=== PATIENT | female | born 1990 | race Caucasian/White ===

== ENCOUNTER 2018-06-23 17:51 | Emergency (ER) | payer OTHER ==
[2018-06-23 18:43] LABS: BASOPHIL % 0.1 % (0.0-0.4); Basophil (Absolute #) 0.02 (0-0.4); Eosinophil % 0.4 % (0.00-5.0); Eosinophil (Absolute #) 0.05 (0-0.5); Granulocytes % 80.1 % (36.0-66.0); Hemoglobin 13.1 gm/dl (12.0-16.0); Lymphocyte (Absolute #) 1.25 (1.0-4.6); Lymphocytes % 9.4 % (24.0-44.0); Mean Cell Volume 89.7 fl (78-100); Mean Corpuscular Hemoglobin 29.4 pg (26-32); Mean Corpuscular Hgb Concent. 32.8 g/dl (32-36); Mean Platelet Volume 10.9 fl (6-9.5); Monocyte (Absolute #) 1.33 (0.0-1.3); Platelet Count 326 K/mm3 (150-450); Red Blood Count 4.46 M/mm3 (4.1-5.4); Red Cell Distribution Width 12.7 % (11.5-14.0); White Blood Count 13.4 K/mm3 (4.0-10.5)
[2018-06-23 18:52] LABS: ADD MANUAL DIFF? NO (NO)
[2018-06-23] MEDS ORDERED: Hydromorphone 1 mg/ml Ampule (19:00)
[2018-06-23] MEDS ORDERED: BENADRYL 50 MG/ML ×2 (19:00→19:28)
[2018-06-23] MEDS ORDERED: Phenergan 25 MG INJ (19:00)
[2018-06-23] MEDS: Hydromorphone 1 mg/ml Ampule IV (19:05)
[2018-06-23] MEDS: Phenergan 25 MG INJ IV (19:05)
[2018-06-23] MEDS: BENADRYL 50 MG/ML IV ×2 (19:06→19:30)
[2018-06-23 19:11] LABS: ALBUMIN 4.4 g/dL (3.5-5.0); ALKALINE PHOSPHATASE 115 U/L (38-126); ANION GAP 15.7 MEQ/L (5-15); BLOOD UREA NITROGEN 8 mg/dL (7-17); CHLORIDE 103 mmol/L (98-107); Calcium 9.6 mg/dL (8.4-10.2); Carbon Dioxide 27 mmol/L (22-30); Creatinine 1 0.62 mg/dL (0.52-1.04); EST GLOMERULAR FILTRATION RATE > 60.0 ML/MIN; Glucose 112 mg/dL (74-106); Potassium 4.3 mmol/L (3.5-5.1); SGOT/AST 29 U/L (14-36); SGPT/ALT 31 U/L (0-35); SODIUM 141 mmol/L (137-145); Total Protein 7.7 g/dL (6.3-8.2)
[2018-06-23 19:11] LABS: TROPONIN < 0.012 ng/mL (0.000-0.034)
[2018-06-23 20:17] LABS: Appearance CLOUDY (CLEAR); Bilirubin SMALL (NEGATIVE); Blood 250 Ery/ul (0-5); COMPLETE URINE MICROSCOPIC? YES; Collection Type VOID; Glucose NEGATIVE (NEGATIVE); Ketones MODERATE (NEGATIVE); Leukocyte Esterase 2+ (NEGATIVE); Nitrite NEGATIVE (NEGATIVE); Protein,Urine Dip TRACE (Negative); Urobilinogen 8 mg/dL (0-1)
[2018-06-23 20:18] LABS: ADD URINE CULTURE? YES (NO); Bacteria MODERATE /HPF (NEGATIVE); Epithelial Cells MANY /HPF (FEW); Mucus MODERATE /HPF (NEGATIVE); WBC 25-50 /HPF (0-5)
[2018-06-23] MEDS ORDERED: ROCEPHIN 1 Gm-D5w 50 ml Bag** 1 G/50 ML IVPB IV (20:37)
[2018-06-23] MEDS ORDERED: Sodium Chloride 0.9% 1000 ML 1,000 ML (20:37)
[2018-06-23] MEDS ORDERED: TYLENOL 325 MG (20:38)
[2018-06-23] MEDS: ROCEPHIN 1 Gm-D5w 50 ml Bag** 1 G/50 ML IVPB IV (20:47)
[2018-06-23] MEDS: Sodium Chloride 0.9% 1000 ML 1,000 ML IV (20:48)
[2018-06-23] MEDS: TYLENOL 325 MG PO (20:50)
== END 2018-06-23 21:52 | disposition home or self-care (01) ==
LOC: ED 17:51
CPT/HCPCS: 36000; 36415; 80053; 81000; 84484; 85025; 87086; 93005; 96374; J0696; J1170; J1200; J2550

== ENCOUNTER 2018-07-04 21:26 | Emergency (ER) | payer OTHER ==
[2018-07-04] MEDS ORDERED: BENADRYL 50 MG/ML IM ONE (22:01)
[2018-07-04] MEDS ORDERED: Phenergan 25 MG INJ IM ONE (22:01)
[2018-07-04] MEDS ORDERED: Hydromorphone 1 mg/ml Ampule IM ONE (22:01)
[2018-07-04] MEDS ORDERED: BENADRYL 50 MG/ML ONE (22:07)
[2018-07-04] MEDS ORDERED: Hydromorphone 1 mg/ml Ampule ONE (22:07)
[2018-07-04] MEDS ORDERED: Phenergan 25 MG INJ ONE ×2 (22:07→22:14)
--- NOTE | 2018-07-04 22:08 | ERPHSYRPT ---
- History of Present Illness Time Seen by Provider: 07/04/18 21:55 Source: patient, family Patient Subjective Stated Complaint: pt is alert and oriented. pt is ambulatory with a steady gait. pt comes in with c/o migraine the past 4 days. pt states that she has "hemapalegic" migraines and that "he face and left side go numb" pt has left sided weakness upon assesment but was able to walk into room and get into bed with no trouble. pt PERRLA. Triage Nursing Assessment: see above Physician History: 27 y/o white female with h/o hemiplegic migraines presents with 4 day h/o migraine headache. it is unresponsive to her home meds. pt is to see a new neurologist. the combination of meds that work for her are benadryl, dilaudid and phenergan Timing/Duration: day(s) (4) Quality: other (usual throbbing. not the worst headache she has ever had) Head Pain Location: frontal, temporal Severity of Pain-Max: moderate Severity of Pain-Current: moderate Recent Head Trauma: no recent headache/trauma Modifying Factors: Improves With: exposure to light (worsen), movement Associated Symptoms: nausea/vomiting, visual disturbance, other (left side numbness), No confusion, No fatigue Allergies/Adverse Reactions: ketorolac [From Toradol] Allergy (Verified 06/23/18 18:18) morphine Allergy (Verified 06/23/18 18:18) Home Medications: Baclofen 10 mg [Lioresal 10 mg] 10 mg PO BID PRN 07/04/18 [History] Hydrocodone Bit/Acetaminophen [[place] 7.5-325 Tablet] 1 tab PO Q6H PRN PRN [History] Ibuprofen 200 mg [Motrin 200 mg] 800 mg PO Q4-6HPRN PRN 07/04/18 [History] Memantine HCl [Namenda] 5 mg PO DAILY 07/04/18 [History] Hx Tetanus, Diphtheria Vaccination/Date Given: Yes Hx Influenza Vaccination/Date Given: No Hx Pneumococcal Vaccination/Date Given: No Immunizations Up to Date: Yes - Review of Systems Constitutional: No Symptoms, No Fever Eyes: Photophobia Ears, Nose, & Throat: No Symptoms, No Ear Pain Respiratory: No Symptoms Cardiac: No Symptoms, No Chest Pain, No Palpitations, No Syncope Abdominal/Gastrointestinal: No Symptoms, No Abdominal Pain, No Nausea, No Vomiting, No Diarrhea Genitourinary Symptoms: No Symptoms, No Dysuria, No Frequency, No Hematuria Musculoskeletal: No Symptoms, No Neck Pain Skin: No Symptoms Neurological: Headache, Parasthesia (left face normal with her migraines) Psychological: No Symptoms Endocrine: No Symptoms Hematologic/Lymphatic: No Symptoms Immunological/Allergic: No Symptoms All Other Systems: Reviewed and Negative - Past Medical History Pertinent Past Medical History: Yes Neurological History: Migraines ENT History: No Pertinent History Cardiac History: No Pertinent History Respiratory History: No Pertinent History Endocrine Medical History: No Pertinent History Musculoskeletal History: No Pertinent History GI Medical History: Irritable Bowel History: No Pertinent History Psycho-Social History: No Pertinent History Female Reproductive Disorders: No Pertinent History Other Medical History: seizures with migraines - Past Surgical History Past Surgical History: Yes Neuro Surgical History: No Pertinent History Cardiac: No Pertinent History Respiratory: No Pertinent History Gastrointestinal: Cholecystectomy Genitourinary: No Pertinent History Musculoskeletal: No Pertinent History Female Surgical History: Lumpectomy Other Surgical History: L ARM FRACTURE, R lumpectomy. - Social History Smoking Status: Never smoker Drug Use: none Patient Lives Alone: No - Female History Hx Last Menstrual Period: 06/21/18 Hx Now: No - Nursing Vital Signs Nursing Vital Signs: Initial Vital Signs Temperature 98.7 F 07/04/18 21:27 Pulse Rate 80 07/04/18 21:27 Respiratory Rate 16 07/04/18 21:27 Blood Pressure 127/75 07/04/18 21:27 O2 Sat by Pulse Oximetry 100 07/04/18 21:27 Pain Scale Pain Intensity 8 - Physical Exam General Appearance: mild distress, alert, anxiety Eye Exam: PERRL/EOMI, eyes nml inspection Ears, Nose, Throat Exam: normal ENT inspection Neck Exam: normal inspection, non-tender, supple, full range of motion Respiratory Exam: normal breath sounds, lungs clear, airway intact, No chest tenderness, No respiratory distress, No accessory muscle use, No rhonchi, No wheezing, No stridor Cardiovascular Exam: regular rate/rhythm, normal heart sounds, normal peripheral pulses Gastrointestinal/Abdominal Exam: soft, normal bowel sounds, No tenderness, No guarding, No rebound Back Exam: normal inspection, normal range of motion, No CVA tenderness, No vertebral tenderness Extremity Exam: normal inspection, normal range of motion, pelvis stable 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, 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, 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 Exam: normal hearing, 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, PERRL Coordination/Gait Exam: normal finger to nose, normal gait Motor/Sensory Exam: no motor deficit, no sensory deficit Skin Exam: No normal color, No warm, No dry Lymphatic Exam: No adenopathy SpO2 Interpretation: normal SpO2: 100 Oxygen Delivery: Room Air - Course Nursing assessment & vital signs reviewed: Yes - Progress Progress: improved, re-examined Air Movement: good Blood Culture(s) Obtained: No Antibiotics given: No Counseled pt/family regarding: diagnosis, need for follow-up - Departure Time of Disposition: 22:24 Departure Disposition: Home Clinical Impression: Migraine headache Condition: Stable Critical Care Time: No Referrals: SHEFALI CERRATO [Primary Care Provider] - Additional Instructions: follow up with your primary doctor or neurologist for further management.
[2018-07-04 22:21] VITALS: PULSE 85
[2018-07-04 22:35] VITALS: BP 106/76; O2SAT 97
== END 2018-07-04 22:35 | disposition home or self-care (01) ==
LOC: ED 21:26
DX: G43.909 Migraine, unspecified, not intractable, without status migrainosus (principal); Z79.899 Other long term (current) drug therapy
CPT/HCPCS: 96372; 99284; J1170; J1200; J2550

== ENCOUNTER 2018-07-05 14:29 | Emergency (ER) | payer OTHER ==
[2018-07-05 14:41] VITALS: O2SAT 98
--- NOTE | 2018-07-05 14:57 | ERPHSYRPT ---
- History of Present Illness Time Seen by Provider: 07/05/18 14:53 Source: patient Exam Limitations: no limitations Patient Subjective Stated Complaint: pt here for migraine, she states she was here for same thing last night and was given shots Triage Nursing Assessment: pt alert, arrived per wc with sunglasses on, resp easy, skin w/d/p. nausea today Physician History: 27-year-old white female who states she has a history of hemiplegic migraines arrives with a headache Patient seen here last night for same thing. Patient apparently gets a "cocktail" consisting of Benadryl, Dilaudid and Phenergan. Patient has not had any fevers Past medical history includes migraines, irritable bowel, seizures or migraine Past surgical history includes tonsillectomy, cholecystectomy, lumpectomy, left arm fracture, right lumpectomy Timing/Duration: today Severity: moderate Associated Symptoms: nausea, No vomiting, No abdominal pain, No shortness of breath, No heartburn, No diaphoresis, No cough, No chills, No chest pain, No fever, No headaches, No loss of appetite, No malaise, No rash, No syncope, No seizure Allergies/Adverse Reactions: ketorolac [From Toradol] Allergy (Verified 07/13/18 11:10) morphine Allergy (Verified 07/13/18 11:10) Home Medications: Baclofen 10 mg [Lioresal 10 mg] 10 mg PO BID PRN 07/04/18 [History] Hydrocodone Bit/Acetaminophen [[place] 7.5-325 Tablet] 1 tab PO Q6H PRN PRN [History] Ibuprofen 200 mg [Motrin 200 mg] 800 mg PO Q4-6HPRN PRN 07/04/18 [History] Dihydroergotamine Mesylate [D.h.e.45] 1 mg IJ DAILY 07/13/18 [History] Hx Tetanus, Diphtheria Vaccination/Date Given: No Hx Influenza Vaccination/Date Given: No Hx Pneumococcal Vaccination/Date Given: No Immunizations Up to Date: Yes - Review of Systems Constitutional: No No Symptoms (she was) Eyes: Photophobia, No Discharge, No Eye Pain, No Eye Redness, No Itchy, No Tearing, No Vision Changes, No Double Vision, No Foreign Body Sensation Ears, Nose, & Throat: No Symptoms Respiratory: No Cough, No Dyspnea Cardiac: No Chest Pain, No Edema, No Syncope Abdominal/Gastrointestinal: No Abdominal Pain, No Nausea, No Vomiting, No Diarrhea, No Constipation, No Hematemesis, No Hematochezia, No Melena, No Dysphagia, No Appetite Changes Genitourinary Symptoms: No Dysuria Musculoskeletal: No Back Pain, No Neck Pain Skin: No Rash Neurological: Headache, Other (patient states hemiplegic migraine), No Dizziness , No Focal Weakness, No Sensory Changes Psychological: No Symptoms Endocrine: No Symptoms All Other Systems: Reviewed and Negative - Past Medical History Pertinent Past Medical History: Yes Neurological History: Migraines ENT History: No Pertinent History Cardiac History: No Pertinent History Respiratory History: No Pertinent History Endocrine Medical History: No Pertinent History Musculoskeletal History: No Pertinent History GI Medical History: Irritable Bowel History: No Pertinent History Psycho-Social History: No Pertinent History Female Reproductive Disorders: No Pertinent History Other Medical History: seizures with migraines - Past Surgical History Past Surgical History: Yes Neuro Surgical History: No Pertinent History Cardiac: No Pertinent History Respiratory: No Pertinent History Gastrointestinal: Cholecystectomy Genitourinary: No Pertinent History Musculoskeletal: No Pertinent History Female Surgical History: Lumpectomy Other Surgical History: L ARM FRACTURE, R lumpectomy. - Social History Smoking Status: Never smoker Exposure to second hand smoke: No Drug Use: none Patient Lives Alone: No - Female History Hx Last Menstrual Period: 2 weeks ago Hx Now: No - Nursing Vital Signs Nursing Vital Signs: Initial Vital Signs Temperature 97.0 F 07/05/18 14:37 Pulse Rate 100 H 07/05/18 14:37 Respiratory Rate 18 07/05/18 14:37 Blood Pressure 112/83 07/05/18 14:37 O2 Sat by Pulse Oximetry 98 07/05/18 14:37 Pain Scale Pain Intensity 9 - Physical Exam General Appearance: no apparent distress, alert Eye Exam: PERRL/EOMI, eyes nml inspection Ears, Nose, Throat Exam: normal ENT inspection, TMs normal, pharynx normal, moist mucous membranes Neck Exam: normal inspection, non-tender, supple, full range of motion Respiratory Exam: normal breath sounds, lungs clear, No respiratory distress Cardiovascular Exam: regular rate/rhythm, normal heart sounds, normal peripheral pulses Gastrointestinal/Abdomen Exam: soft, normal bowel sounds, No tenderness, No mass Back Exam: normal inspection, normal range of motion, No CVA tenderness, No vertebral tenderness Extremity Exam: normal inspection, normal range of motion, pelvis stable Neurologic Exam: alert, 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, cooperative, 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 nml as tested, normal mood/affect, nml cerebellar function, nml station & gait, sensation nml, other (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 her migraines), No motor deficits Skin Exam: normal color, warm, dry, No rash SpO2 Interpretation: normal (98%) SpO2: 98 Ordered Tests: Medication Summary Discontinued Medications Generic Name Dose Route Start Last Admin Trade Name Freq PRN Reason Stop Dose Admin Diphenhydramine HCl 25 mg 07/05/18 15:04 07/05/18 15:19 Benadryl 50 Mg/Ml IV 07/05/18 15:05 25 mg STAT ONE Administration Diphenhydramine HCl Confirm 07/05/18 15:15 Benadryl 50 Mg/Ml Administered 07/05/18 15:16 Dose 50 mg .ROUTE .STK-MED ONE Hydromorphone HCl 1 mg 07/05/18 15:04 07/05/18 15:17 Hydromorphone 1 Mg/Ml Ampule IV 07/05/18 15:05 1 mg STAT ONE Administration Hydromorphone HCl Confirm 07/05/18 15:15 Hydromorphone 1 Mg/Ml Ampule Administered 07/05/18 15:16 Dose 1 mg .ROUTE .STK-MED ONE Hydromorphone HCl 1 mg 07/05/18 16:05 Hydromorphone 1 Mg/Ml Ampule IV 07/05/18 16:06 STAT ONE Hydromorphone HCl Confirm 07/05/18 16:59 Hydromorphone 1 Mg/Ml Ampule Administered 07/05/18 17:00 Dose 1 mg .ROUTE .STK-MED ONE Sodium Chloride 1,000 mls @ 999 mls/hr 07/05/18 15:04 07/05/18 15:17 Sodium Chloride 0.9% 1000 Ml IV 07/05/18 16:04 999 mls/hr .Q1H1M STA Administration Sodium Chloride Confirm 07/05/18 15:15 Sodium Chloride 0.9% 1000 Ml Administered 07/05/18 15:16 Dose 1,000 mls @ ud .ROUTE .STK-MED ONE Promethazine HCl 12.5 mg 07/05/18 15:04 07/05/18 15:17 Phenergan 25 Mg Inj IV 07/05/18 15:05 12.5 mg STAT ONE Administration Promethazine HCl Confirm 07/05/18 15:14 Phenergan 25 Mg Inj Administered 07/05/18 15:15 Dose 25 mg .ROUTE .STK-MED ONE - Departure Time of Disposition: 17:30 Departure Disposition: Home Clinical Impression: Migraine Qualifiers: Migraine type: unspecified Status migrainosus presence: without status migrainosus Intractability: not intractable Qualified Code(s): G43.909 - Migraine, unspecified, not intractable, without status migrainosus Condition: Fair Critical Care Time: No Referrals: SHEFALI CERRATO [Primary Care Provider] -
[2018-07-05] MEDS ORDERED: BENADRYL 50 MG/ML IV ONE (15:04)
[2018-07-05] MEDS ORDERED: Sodium Chloride 0.9% 1000 ML 1,000 ML IV STA (15:04)
[2018-07-05] MEDS ORDERED: Hydromorphone 1 mg/ml Ampule IV ONE ×2 (15:04→16:05)
[2018-07-05] MEDS ORDERED: Phenergan 25 MG INJ IV ONE (15:04)
[2018-07-05] MEDS ORDERED: Phenergan 25 MG INJ ONE (15:14)
[2018-07-05] MEDS ORDERED: Hydromorphone 1 mg/ml Ampule ONE ×2 (15:15→16:59)
[2018-07-05] MEDS ORDERED: Sodium Chloride 0.9% 1000 ML 1,000 ML ONE (15:15)
[2018-07-05] MEDS ORDERED: BENADRYL 50 MG/ML ONE (15:15)
[2018-07-05 15:35] VITALS: BP 107/64; PULSE 89
== END 2018-07-05 17:30 | disposition home or self-care (01) ==
LOC: ED 14:29
DX: G43.909 Migraine, unspecified, not intractable, without status migrainosus (principal); Z79.899 Other long term (current) drug therapy
CPT/HCPCS: 96360; 96374; 96375; 99284; J1170; J1200; J2550

== ENCOUNTER 2018-07-13 11:03 | Emergency (ER) | payer OTHER ==
--- NOTE | 2018-07-13 11:46 | ERPHSYRPT ---
- History of Present Illness Time Seen by Provider: 07/13/18 11:27 Source: patient Exam Limitations: no limitations Patient Subjective Stated Complaint: "migraine" for three days Triage Nursing Assessment: ambulated to room per self with sunglasses on. resp easy. skin w/d, color normal. Physician History: The patient is a 27-year-old female with a friend complaining of a typical migraine headache that began on Saturday and has continued Saturday and Saturday. She saw a doctor on and was given D.H.E. 45 for self injections at home for the migraines. Her mother gave her DHE on Saturday and Saturday by IM without relief. She also has [place] 5/325 for her headaches as well as baclofen. She did not take the [place] today. In the past she has taken DHE by IV with good results. She has taken Toradol with Phenergan with good results but now she states the Toradol gives her a rash at the site of injection. She has tried Haldol by IV in the past but does not want to take it because of the way it makes her feel. She has tried steroids with Benadryl by IV with some good results. She states that eventually after trying various medicines by IV they don't work well. She has been seen in this ER on 06/23/18, 07/04/18, and 07/05, for migraine headache treatment. Each time she was given Dilaudid, Benadryl, and Phenergan. She has seen a neurologist in the past for her headaches and has been put on prophylactic medicines for preventative treatment. She is to see a neurologist in [place] in the near future but does not have the date sat at this time. She states that some known triggers for her are caffeine, bananas, and sauces. She does drink occasionally. She eats cheeses and chocolates. She has had migraines since she was 12 years old. On Saturday when the migraine began, she had her typical migrainous aura which consisted of blurry vision in the left eye and numbness on the left side of her body a few minutes before the headache began. In the past she has tried Imitrex during the migrainous aura without relief. Her past medical history is significant for migraine headaches with aura, left arm fracture, benign right breast lump, and cholecystectomy. Today light bothers her as does her stomach. She is nauseated but has not vomited. Timing/Duration: day(s) (3), constant, sudden Quality: aching Head Pain Location: temporal (left) Severity of Pain-Max: moderate Severity of Pain-Current: moderate Recent Head Trauma: frequent headaches, chronic headaches Modifying Factors: Improves With: exposure to light, medication (has not taken any meds for migraine treatment today at home) Associated Symptoms: nausea/vomiting, sensitive to light Previous symptoms: same symptoms as today, recently seen, recently treated Allergies/Adverse Reactions: ketorolac [From Toradol] Allergy (Verified 07/13/18 11:10) morphine Allergy (Verified 07/13/18 11:10) Home Medications: Baclofen 10 mg [Lioresal 10 mg] 10 mg PO BID PRN 07/04/18 [History] Hydrocodone Bit/Acetaminophen [[place] 7.5-325 Tablet] 1 tab PO Q6H PRN PRN [History] Ibuprofen 200 mg [Motrin 200 mg] 800 mg PO Q4-6HPRN PRN 07/04/18 [History] Dihydroergotamine Mesylate [D.h.e.45] 1 mg IJ DAILY 07/13/18 [History] Hx Tetanus, Diphtheria Vaccination/Date Given: No Hx Influenza Vaccination/Date Given: No Hx Pneumococcal Vaccination/Date Given: No - Review of Systems Constitutional: No Fever, No Chills Eyes: Photophobia Ears, Nose, & Throat: No Symptoms Respiratory: No Cough, No Dyspnea Cardiac: No Chest Pain, No Edema, No Syncope Abdominal/Gastrointestinal: No Abdominal Pain, No Nausea, No Vomiting, No Diarrhea Genitourinary Symptoms: No Dysuria Musculoskeletal: No Back Pain, No Neck Pain Skin: No Rash Neurological: Headache, No Dizziness, No Focal Weakness, No Sensory Changes Psychological: No Symptoms Endocrine: No Symptoms Hematologic/Lymphatic: No Symptoms Immunological/Allergic: No Symptoms All Other Systems: Reviewed and Negative - Past Medical History Pertinent Past Medical History: Yes Neurological History: Migraines ENT History: No Pertinent History Cardiac History: No Pertinent History Respiratory History: No Pertinent History Endocrine Medical History: No Pertinent History Musculoskeletal History: No Pertinent History GI Medical History: Irritable Bowel History: No Pertinent History Psycho-Social History: No Pertinent History Female Reproductive Disorders: No Pertinent History Other Medical History: seizures with migraines - Past Surgical History Past Surgical History: Yes Neuro Surgical History: No Pertinent History Cardiac: No Pertinent History Respiratory: No Pertinent History Gastrointestinal: Cholecystectomy Genitourinary: No Pertinent History Musculoskeletal: No Pertinent History Female Surgical History: Lumpectomy Other Surgical History: L ARM FRACTURE, R lumpectomy. - Social History Smoking Status: Never smoker Exposure to second hand smoke: No Drug Use: none Patient Lives Alone: No - Female History Hx Last Menstrual Period: three weeks ago Hx Now: No - Nursing Vital Signs Nursing Vital Signs: Initial Vital Signs Temperature 98.9 F 07/13/18 11:07 Pulse Rate 85 07/13/18 11:07 Respiratory Rate 16 07/13/18 11:07 Blood Pressure 123/86 07/13/18 11:07 O2 Sat by Pulse Oximetry 99 07/13/18 11:07 Pain Scale Pain Intensity 8 - Physical Exam General Appearance: no apparent distress Eye Exam: PERRL/EOMI, No photophobia Ears, Nose, Throat Exam: normal ENT inspection, moist mucous membranes Neck Exam: normal inspection, supple, full range of motion, No meningismus Respiratory Exam: normal breath sounds, lungs clear Cardiovascular Exam: regular rate/rhythm, normal heart sounds Gastrointestinal/Abdominal Exam: soft, No tenderness, No distention Back Exam: normal inspection, normal range of motion Extremity Exam: normal inspection 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, 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, 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 Exam: normal hearing, 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, PERRL, tongue midline, No abnormal pupil position, No ab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, No facial asymmetry, No facial droop, No facial paresthesias, No facial weakness Coordination/Gait Exam: normal cerebellar function Motor/Sensory Exam: no motor deficit, no sensory deficit Skin Exam: normal color, warm, dry, No rash SpO2 Interpretation: normal SpO2: 99 Oxygen Delivery: Room Air Ordered Tests: Medication Summary Generic Name Dose Route Start Last Admin Trade Name Freq PRN Reason Stop Dose Admin Sodium Chloride 1,000 mls @ 999 mls/hr 07/13/18 12:25 07/13/18 12:33 Sodium Chloride 0.9% 1000 Ml IV 07/13/18 13:25 999 mls/hr .Q1H1M STA Administration Discontinued Medications Generic Name Dose Route Start Last Admin Trade Name Freq PRN Reason Stop Dose Admin Diphenhydramine HCl 50 mg 07/13/18 12:25 07/13/18 12:33 Benadryl 50 Mg/Ml IV 07/13/18 12:26 50 mg STAT ONE Administration Diphenhydramine HCl Confirm 07/13/18 12:30 Benadryl 50 Mg/Ml Administered 07/13/18 12:31 Dose 50 mg .ROUTE .STK-MED ONE Sodium Chloride Confirm 07/13/18 12:30 Sodium Chloride 0.9% 1000 Ml Administered 07/13/18 12:31 Dose 1,000 mls @ ud .ROUTE .STK-MED ONE Prochlorperazine Edisylate 10 mg 07/13/18 12:25 07/13/18 12:44 Compazine 10 Mg/2 Ml IV 07/13/18 12:26 10 mg STAT ONE Administration Prochlorperazine Edisylate Confirm 07/13/18 12:30 Compazine 10 Mg/2 Ml Administered 07/13/18 12:31 Dose 10 mg .ROUTE .STK-MED ONE - Progress Progress Note: 07/13/18 11:52 I discussed with the patient the treatment options before beginning any other. I told her I rarely give narcotics for migraine headaches. She agreed to begin treatment with IV fluids (she states that that helps), IV Phenergan, IV Benadryl , and IV DHE 45. 07/13/18 12:22 After review of up-to-date there is a recent acute treatment of migraine in adults by Cliff Ceron, Cliff Pedroza, and Cliff Ramos, that was updated 03/03/18 with literature review current to 06/07. This review article does not recommend the use of narcotics for acute migraine treatment. Known poor outcome from narcotic use is discussed including rebound headaches. After discussion with the patient, the patient agrees to Compazine is 10 mg, Benadryl 50 mg, and fluids by IV consistent with the literature review. 07/13/18 13:22 The patient was given Compazine 10 mg, Benadryl 50 mg, and about 800 mL of normal saline by IV. She states that she is ready to go home. I asked her how she was feeling and she states that she was "not any better but wants to go home ". She states that she is feeling jittery. I really minded her to keep a complete food diary to look for triggers of her migraine headache. I also recommended that she try Imitrex with naproxen next time she has a beginning of a headache. The patient agreed. Counseled pt/family regarding: diagnosis, need for follow-up - Departure Time of Disposition: 13:24 Departure Disposition: Home Clinical Impression: Migraine headache Condition: Stable Critical Care Time: No Referrals: Provider,Unknown [Primary Care Provider] - Additional Instructions: You have a recalcitrant migraine headache. You were given Compazine 10 mg, Benadryl 50 mg, and fluids by IV in the ER. We discussed the need for you to avoid narcotics for treatment of your migraine headaches. I suggest that you use Imitrex with 500 mg of naproxen at the beginning of future headaches. Follow-up with your future appointment with a neurologist. Also follow-up with your primary medical doctor sometime next week. Keep a food diary to identify food triggers of the migraine headaches.
[2018-07-13] MEDS ORDERED: Compazine 10 MG/2 ML IV ONE (12:25)
[2018-07-13] MEDS ORDERED: Sodium Chloride 0.9% 1000 ML 1,000 ML IV STA (12:25)
[2018-07-13] MEDS ORDERED: BENADRYL 50 MG/ML IV ONE (12:25)
[2018-07-13] MEDS ORDERED: BENADRYL 50 MG/ML ONE (12:30)
[2018-07-13] MEDS ORDERED: Compazine 10 MG/2 ML ONE (12:30)
[2018-07-13] MEDS ORDERED: Sodium Chloride 0.9% 1000 ML 1,000 ML ONE (12:30)
[2018-07-13 13:19] VITALS: PULSE 100
[2018-07-13 13:36] VITALS: BP 116/56; O2SAT 97
== END 2018-07-13 13:36 | disposition home or self-care (01) ==
LOC: ED 11:03
DX: G43.909 Migraine, unspecified, not intractable, without status migrainosus (principal); Z79.899 Other long term (current) drug therapy
CPT/HCPCS: 36000; 96360; 96374; 96375; 99284; J1200

== ENCOUNTER 2018-07-27 12:11 | Emergency (ER) | payer OTHER ==
--- NOTE | 2018-07-27 12:59 | ERPHSYRPT ---
- History of Present Illness Time Seen by Provider: 07/27/18 13:13 Source: patient Exam Limitations: no limitations Patient Subjective Stated Complaint: alert and oriented.. staets migraine starting saturday. has not taken meds today.. has hx migraines. staes on the left side with light sensitivity n/v. Mitchell an appointment with pain specialist Aug 12 and with Neurologist in November. meds have not helped this time. took DHE 45, Baclofen and [place] with no relief Triage Nursing Assessment: alert and oriented.. staets migraine starting saturday. has not taken meds today.. has hx migraines. staes on the left side with light sensitivity n/v. Mitchell an appointment with pain specialist Aug 12 and with Neurologist in November. meds have not helped this time. took DHE 45 , Baclofen and [place] with no relief. Neuro intact Physician History: The patient is a 27-year-old female with her complaining of a usual migraine headache that began with pain on the left side of her head on Saturday or 2 days ago. She woke up with the BARRIENTOS. She has treatment resistant migraines chronically. She took a [place] and baclofen on Saturday. She took [place] on Saturday. She tried DHE 45 1 mg IM injections 2 times on Saturday. Nothing has helped. She is trying to avoid light. She is nauseated. I saw this same patient a couple weeks ago in this ER for the same type of migraine headache. We discussed at length the last time she was here that narcotics would not be an appropriate treatment. The last time she was here she was given Benadryl 50 mg, Compazine 10 mg, and fluids by IV. Today the patient states that she does not want Compazine or Reglan because it makes her feel anxious and jittery. Today she does tell me that sometimes magnesium will help. Her past medical history is significant for chronic migraine. We did discuss at her last visit the helpfulness of keeping a food diary to look for triggers. She has not been diligent in keeping a food diary. Timing/Duration: day(s) (2) Quality: aching Head Pain Location: temporal, parietal (left) Severity of Pain-Max: moderate Severity of Pain-Current: moderate Recent Head Trauma: chronic headaches Modifying Factors: Improves With: exposure to light Associated Symptoms: nausea/vomiting, sensitive to light Previous symptoms: same symptoms as today, recently seen, recently treated Allergies/Adverse Reactions: ketorolac [From Toradol] Allergy (Verified 07/13/18 11:10) morphine Allergy (Verified 07/13/18 11:10) Home Medications: Baclofen 10 mg [Lioresal 10 mg] 10 mg PO BID PRN 07/04/18 [History] Hydrocodone Bit/Acetaminophen [[place] 7.5-325 Tablet] 1 tab PO Q6H PRN PRN [History] Ibuprofen 200 mg [Motrin 200 mg] 800 mg PO Q4-6HPRN PRN 07/04/18 [History] Dihydroergotamine Mesylate [D.h.e.45] 1 mg IJ DAILY 07/13/18 [History] Hx Tetanus, Diphtheria Vaccination/Date Given: No Hx Influenza Vaccination/Date Given: No Hx Pneumococcal Vaccination/Date Given: No - Review of Systems Constitutional: No Fever, No Chills Eyes: No Symptoms Ears, Nose, & Throat: No Symptoms Respiratory: No Cough, No Dyspnea Cardiac: No Chest Pain, No Edema, No Syncope Abdominal/Gastrointestinal: Nausea, No Abdominal Pain, No Vomiting, No Diarrhea Genitourinary Symptoms: No Dysuria Musculoskeletal: No Back Pain, No Neck Pain Skin: No Rash Neurological: Headache Psychological: No Symptoms Endocrine: No Symptoms Hematologic/Lymphatic: No Symptoms Immunological/Allergic: No Symptoms All Other Systems: Reviewed and Negative - Past Medical History Pertinent Past Medical History: Yes Neurological History: Migraines ENT History: No Pertinent History Cardiac History: No Pertinent History Respiratory History: No Pertinent History Endocrine Medical History: No Pertinent History Musculoskeletal History: No Pertinent History GI Medical History: Irritable Bowel History: No Pertinent History Psycho-Social History: No Pertinent History Female Reproductive Disorders: No Pertinent History Other Medical History: seizures with migraines - Past Surgical History Past Surgical History: No Neuro Surgical History: No Pertinent History Cardiac: No Pertinent History Respiratory: No Pertinent History Gastrointestinal: Cholecystectomy Genitourinary: No Pertinent History Musculoskeletal: No Pertinent History Female Surgical History: Lumpectomy Other Surgical History: L ARM FRACTURE, R lumpectomy. - Social History Smoking Status: Never smoker Exposure to second hand smoke: No Drug Use: none Patient Lives Alone: No - Female History Hx Last Menstrual Period: 1 week ago Hx Now: No - Nursing Vital Signs Nursing Vital Signs: Initial Vital Signs Temperature 98.6 F 07/27/18 12:41 Pulse Rate 84 07/27/18 12:41 Respiratory Rate 16 07/27/18 12:41 Blood Pressure 128/78 07/27/18 12:41 O2 Sat by Pulse Oximetry 98 07/27/18 12:41 Pain Scale Pain Intensity 8 - Physical Exam General Appearance: mild distress Eye Exam: photophobia Ears, Nose, Throat Exam: normal ENT inspection, moist mucous membranes Neck Exam: normal inspection, supple, full range of motion, No meningismus Respiratory Exam: normal breath sounds, lungs clear Cardiovascular Exam: regular rate/rhythm, normal heart sounds Gastrointestinal/Abdominal Exam: soft, No tenderness, No distention Back Exam: normal inspection, normal range of motion Extremity Exam: normal inspection 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, 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, 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: 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, PERRL, No facial droop Coordination/Gait Exam: normal cerebellar function Motor/Sensory Exam: no motor deficit, no sensory deficit, No no pronator drift, No sensory deficit, No weak motor strength RUE, No weak motor strength LUE, No weak motor strength RLE, No weak motor strength LLE Skin Exam: normal color, warm, dry, No rash SpO2 Interpretation: normal SpO2: 98 Oxygen Delivery: Room Air Ordered Tests: Active Orders 24 hr Category Date Time Status IV Insertion STAT Care 07/27/18 13:46 Active Medication Summary Generic Name Dose Route Start Last Admin Trade Name Freq PRN Reason Stop Dose Admin Magnesium Sulfate/Dextrose 100 mls @ 100 mls/hr 07/27/18 13:45 07/27/18 14:39 Magnesium 1 Gm / 100 Ml D5w IV 07/27/18 15:44 100 mls/hr Q1H ADRIÁN Administration Discontinued Medications Generic Name Dose Route Start Last Admin Trade Name Freq PRN Reason Stop Dose Admin Dexamethasone Sodium Phosphate 10 mg 07/27/18 13:37 07/27/18 13:55 Decadron 10mg Inj. IV 07/27/18 13:38 10 mg STAT ONE Administration Dexamethasone Sodium Phosphate Confirm 07/27/18 13:50 Decadron 10mg Inj. Administered 07/27/18 13:51 Dose 10 mg .ROUTE .STK-MED ONE Diphenhydramine HCl 50 mg 07/27/18 13:32 07/27/18 13:55 Benadryl 50 Mg/Ml IV 07/27/18 13:33 50 mg STAT ONE Administration Diphenhydramine HCl Confirm 07/27/18 13:42 Benadryl 50 Mg/Ml Administered 07/27/18 13:43 Dose 50 mg .ROUTE .STK-MED ONE Sodium Chloride 1,000 mls @ 999 mls/hr 07/27/18 13:33 07/27/18 15:33 Sodium Chloride 0.9% 1000 Ml IV 07/27/18 14:33 Infused .Q1H1M STA Infusion Sodium Chloride Confirm 07/27/18 13:42 Sodium Chloride 0.9% 1000 Ml Administered 07/27/18 13:43 Dose 1,000 mls @ ud .ROUTE .STK-MED ONE Promethazine HCl 25 mg 07/27/18 13:32 07/27/18 13:56 Phenergan 25 Mg Inj IV 07/27/18 13:33 25 mg STAT ONE Administration Promethazine HCl Confirm 07/27/18 13:42 Phenergan 25 Mg Inj Administered 07/27/18 13:43 Dose 25 mg .ROUTE .STK-MED ONE Sumatriptan Succinate 6 mg 07/27/18 13:31 07/27/18 13:54 Imitrex 6 Mg/0.5 Ml SQ 07/27/18 13:32 6 mg STAT STA Administration Sumatriptan Succinate Confirm 07/27/18 13:42 Imitrex 6 Mg/0.5 Ml Administered 07/27/18 13:43 Dose 6 mg SQ .STK-MED ONE - Progress Progress: unchanged Progress Note: 07/27/18 15:55 The patient requested Valium when she first arrived. I discussed with her that narcotics and barbiturates are not appropriate for treatment of migraine headaches. After giving her Imitrex 6 mg subcutaneous, magnesium 2 g IV, Phenergan 25 mg IV, Benadryl 50 mg IV, and 1 L of normal saline by IV the patient states she still has a headache. She was offered Compazine and/or Reglan. The patient refused both of these because she states it makes her jittery. The patient wants to leave. Counseled pt/family regarding: diagnosis, need for follow-up - Departure Time of Disposition: 16:00 Departure Disposition: Home Clinical Impression: Migraine with status migrainosus Condition: Stable Critical Care Time: No Referrals: LUZ ELENA ZAMARRIPA MD [Primary Care Provider] - Additional Instructions: You have a headache that has been difficult to respond to treatment. Treatment of migraine headaches with narcotics and or barbiturates is not appropriate. It would lead to rebound headaches that are worse. You declined Reglan and Compazine because of how it makes her jittery. Benadryl is used to counteract the jitteriness. You were given magnesium 2 g, Phenergan 25 mg, Benadryl 50 mg , 1 L of normal saline by IV and Imitrex 6 mg subcutaneous in the ER. Once again I asked you to make a complete and accurate, detailed food diary to look for triggers of your migraine. Follow-up with your scheduled appointments.
[2018-07-27] MEDS ORDERED: Imitrex 6 MG/0.5 ML SQ STA (13:31)
[2018-07-27] MEDS ORDERED: Phenergan 25 MG INJ IV ONE (13:32)
[2018-07-27] MEDS ORDERED: BENADRYL 50 MG/ML IV ONE (13:32)
[2018-07-27] MEDS ORDERED: Sodium Chloride 0.9% 1000 ML 1,000 ML IV STA (13:33)
[2018-07-27] MEDS ORDERED: DECADRON 10MG INJ. IV ONE (13:37)
[2018-07-27] MEDS ORDERED: Magnesium 1 Gm / 100 Ml D5W*** 200 ML IV ONE (13:42)
[2018-07-27] MEDS ORDERED: Imitrex 6 MG/0.5 ML SQ ONE (13:42)
[2018-07-27] MEDS ORDERED: Phenergan 25 MG INJ ONE (13:42)
[2018-07-27] MEDS ORDERED: Sodium Chloride 0.9% 1000 ML 1,000 ML ONE (13:42)
[2018-07-27] MEDS ORDERED: BENADRYL 50 MG/ML ONE (13:42)
[2018-07-27] MEDS ORDERED: DECADRON 10MG INJ. ONE (13:50)
[2018-07-27] MEDS: Magnesium 1 Gm / 100 Ml D5W*** 100 ML IV SCH ×2 (13:56→14:39)
[2018-07-27 14:42] VITALS: BP 142/103; PULSE 84
[2018-07-27 16:01] VITALS: O2SAT 98
== END 2018-07-27 16:14 | disposition home or self-care (01) ==
LOC: ED 12:11
DX: G43.901 Migraine, unspecified, not intractable, with status migrainosus (principal); Z79.899 Other long term (current) drug therapy
CPT/HCPCS: 36000; 96360; 96365; 96372; 96374; 96375; 99284; J1100; J1200; J2550; J3030; J3475

== ENCOUNTER 2018-08-16 18:55 | Emergency (ER) | payer OTHER ==
[2018-08-16] MEDS ORDERED: Reglan 10 MG/2 ML IV ONE (19:35)
[2018-08-16] MEDS ORDERED: Sodium Chloride 0.9% 1000 ML 1,000 ML IV STA ×2 (19:35→20:53)
[2018-08-16] MEDS ORDERED: BENADRYL 50 MG/ML IV ONE (19:35)
--- NOTE | 2018-08-16 19:41 | ERPHSYRPT ---
- History of Present Illness Time Seen by Provider: 08/16/18 19:38 Source: patient Exam Limitations: no limitations Patient Subjective Stated Complaint: pt states she has migraine for 3 days and intermittent chest pain since yesterday Triage Nursing Assessment: pt alert and oreinted, answers questions approp. pt ambulatory with steady gait noted, respirations nonlabored with lungs cta. pt arrive with sunglasses on, states light increases pain. c/o intermittent lt sided chest pain, states is sharp and radiates to lt neck ans shoulder. pupils euqual and reactive. bilat upper and lower ext strength wnl. Physician History: pt states she has migraine for 3 days and intermittent chest pain since yesterday Timing/Duration: day(s) (3 days) Quality: aching, tightness Head Pain Location: frontal Severity of Pain-Max: moderate Severity of Pain-Current: moderate Recent Head Trauma: frequent headaches, chronic headaches Associated Symptoms: sensitive to light, other (chest pain) Previous symptoms: same symptoms as today, recently seen Allergies/Adverse Reactions: ketorolac [From Toradol] Allergy (Verified 08/16/18 19:22) morphine Allergy (Verified 08/16/18 19:22) Home Medications: Dihydroergotamine Mesylate [D.h.e.45] 1 mg IJ DAILY 07/13/18 [History] Cyclobenzaprine HCl [Flexeril] 5 mg PO DAILY 08/16/18 [History] Lorazepam 0.5 mg [Ativan 0.5 MG] 0.5 mg PO DAILY 08/16/18 [History] Hx Tetanus, Diphtheria Vaccination/Date Given: Yes (2015) Hx Influenza Vaccination/Date Given: No Hx Pneumococcal Vaccination/Date Given: No Immunizations Up to Date: Yes - Review of Systems Constitutional: No Fever, No Chills Eyes: No Symptoms Ears, Nose, & Throat: No Symptoms Respiratory: No Cough, No Dyspnea Cardiac: No Chest Pain, No Edema, No Syncope Abdominal/Gastrointestinal: No Abdominal Pain, No Nausea, No Vomiting, No Diarrhea Genitourinary Symptoms: No Dysuria Musculoskeletal: No Back Pain, No Neck Pain Skin: No Rash Neurological: Headache, No Dizziness, No Focal Weakness, No Sensory Changes Psychological: No Symptoms Endocrine: No Symptoms All Other Systems: Reviewed and Negative - Past Medical History Pertinent Past Medical History: Yes Neurological History: Migraines ENT History: No Pertinent History Cardiac History: No Pertinent History Respiratory History: No Pertinent History Endocrine Medical History: No Pertinent History Musculoskeletal History: No Pertinent History GI Medical History: Irritable Bowel History: No Pertinent History Psycho-Social History: No Pertinent History Female Reproductive Disorders: No Pertinent History Other Medical History: seizures with migraines - Past Surgical History Past Surgical History: Yes Neuro Surgical History: No Pertinent History Cardiac: No Pertinent History Respiratory: No Pertinent History Gastrointestinal: Cholecystectomy Genitourinary: No Pertinent History Musculoskeletal: No Pertinent History Female Surgical History: Lumpectomy Other Surgical History: L ARM FRACTURE, R lumpectomy. - Social History Smoking Status: Never smoker Exposure to second hand smoke: No Drug Use: none Patient Lives Alone: No - Female History Hx Last Menstrual Period: 2 weeks ago Hx Now: No - Nursing Vital Signs Nursing Vital Signs: Initial Vital Signs Temperature 98.5 F 08/16/18 19:10 Pulse Rate 96 H 08/16/18 19:10 Respiratory Rate 16 08/16/18 19:10 Blood Pressure 109/67 08/16/18 19:10 O2 Sat by Pulse Oximetry 100 08/16/18 19:10 Pain Scale Pain Intensity 9 - Physical Exam General Appearance: no apparent distress Eye Exam: PERRL/EOMI Ears, Nose, Throat Exam: normal ENT inspection, moist mucous membranes Neck Exam: normal inspection, supple, full range of motion, No meningismus Respiratory Exam: normal breath sounds, lungs clear Cardiovascular Exam: regular rate/rhythm, normal heart sounds Gastrointestinal/Abdominal Exam: soft, No tenderness, No distention Back Exam: normal inspection, normal range of motion 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, 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, 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: 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, PERRL, No facial droop Coordination/Gait Exam: normal cerebellar function Motor/Sensory Exam: no motor deficit, no sensory deficit Skin Exam: normal color, warm, dry, No rash SpO2: 100 Oxygen Delivery: Room Air - Course Nursing assessment & vital signs reviewed: Yes EKG Interpreted by Me: Sinus Rhythm, NORMAL QRS, NORMAL ST-T Ordered Tests: Active Orders 24 hr Category Date Time Status CBC W DIFF Stat Lab 08/16/18 19:35 Completed CMP Stat Lab 08/16/18 20:00 Completed Medication Summary Discontinued Medications Generic Name Dose Route Start Last Admin Trade Name Freq PRN Reason Stop Dose Admin Chlorpromazine HCl Confirm 08/16/18 21:12 Thorazine 50 Mg Administered 08/16/18 21:13 Dose 50 mg .ROUTE .STK-MED ONE Diphenhydramine HCl 25 mg 08/16/18 19:35 08/16/18 20:08 Benadryl 50 Mg/Ml IV 08/16/18 19:36 25 mg STAT ONE Administration Diphenhydramine HCl Confirm 08/16/18 20:07 Benadryl 50 Mg/Ml Administered 08/16/18 20:08 Dose 50 mg .ROUTE .STK-MED ONE Fentanyl Citrate 50 mcg 08/16/18 21:32 08/16/18 21:55 Sublimaze 100 Mcg/2 Ml IV 08/16/18 21:33 50 mcg STAT ONE Administration Fentanyl Citrate Confirm 08/16/18 21:54 Sublimaze 100 Mcg/2 Ml Administered 08/16/18 21:55 Dose 100 mcg .ROUTE .STK-MED ONE Sodium Chloride 1,000 mls @ 999 mls/hr 08/16/18 19:35 08/16/18 20:09 Sodium Chloride 0.9% 1000 Ml IV 08/16/18 20:35 999 mls/hr .Q1H1M STA Administration Sodium Chloride Confirm 08/16/18 20:07 Sodium Chloride 0.9% 1000 Ml Administered 08/16/18 20:08 Dose 1,000 mls @ ud .ROUTE .STK-MED ONE Chlorpromazine HCl 50 mg/ 102 mls @ 100 mls/hr 08/16/18 20:53 08/16/18 21:20 Sodium Chloride IV 08/16/18 21:54 100 mls/hr STAT ONE Administration Sodium Chloride 1,000 mls @ 999 mls/hr 08/16/18 20:53 08/16/18 21:19 Sodium Chloride 0.9% 1000 Ml IV 08/16/18 21:53 999 mls/hr .Q1H1M STA Administration Sodium Chloride Confirm 08/16/18 21:12 Sodium Chloride 0.9% 100 Ml Ivpb Administered 08/16/18 21:13 Dose 100 mls @ ud IV .STK-MED ONE Sodium Chloride Confirm 08/16/18 21:12 Sodium Chloride 0.9% 1000 Ml Administered 08/16/18 21:13 Dose 1,000 mls @ ud .ROUTE .STK-MED ONE Metoclopramide HCl 10 mg 08/16/18 19:35 08/16/18 20:27 Reglan 10 Mg/2 Ml IV 08/16/18 19:36 Not Given STAT ONE Nalbuphine HCl 10 mg 08/16/18 20:33 08/16/18 20:37 Nalbuphine Hcl 10 Mg/1 Ml Injection IV 08/16/18 20:34 10 mg STAT STA Administration Nalbuphine HCl Confirm 08/16/18 20:36 Nubain 10 Mg/Ml Administered 08/16/18 20:37 Dose 10 mg .ROUTE .STK-MED ONE Ondansetron HCl 4 mg 08/16/18 20:32 08/16/18 20:37 Zofran 4 Mg/2 Ml Vial IV 08/16/18 20:33 4 mg STAT ONE Administration Ondansetron HCl Confirm 08/16/18 20:35 Zofran 4 Mg/2 Ml Vial Administered 08/16/18 20:36 Dose 4 mg .ROUTE .STK-MED ONE Promethazine HCl 25 mg 08/16/18 19:53 08/16/18 20:09 Phenergan 25 Mg Inj IM 08/16/18 19:54 25 mg STAT ONE Administration Promethazine HCl Confirm 08/16/18 20:07 Phenergan 25 Mg Inj Administered 08/16/18 20:08 Dose 25 mg .ROUTE .STK-MED ONE Lab/Rad Data: Laboratory Result Diagrams 08/16/18 19:35 08/16/18 20:00 Laboratory Results 08/16/18 08/16/18 Range/Units 20:00 19:35 WBC 9.0 (4.0-10.5) K/mm3 RBC 4.52 (4.1-5.4) M/mm3 Hgb 13.3 (12.0-16.0) gm/dl Hct 40.9 (35-47) % MCV 90.5 (78-100) fl MCH 29.4 (26-32) pg MCHC 32.5 (32-36) g/dl RDW 13.5 (11.5-14.0) % Plt Count 292 (150-450) K/mm3 MPV 11.8 H (6-9.5) fl Gran % 56.3 (36.0-66.0) % Eos # (Auto) 0.40 (0-0.5) Absolute Lymphs (auto) 2.57 (1.0-4.6) Absolute Monos (auto) 0.95 (0.0-1.3) Lymphocytes % 28.5 (24.0-44.0) % Monocytes % 10.5 (0.0-12.0) % Eosinophils % 4.4 (0.00-5.0) % Basophils % 0.3 (0.0-0.4) % Absolute Granulocytes 5.08 (1.4-6.9) Basophils # 0.03 (0-0.4) Sodium 140 (137-145) mmol/L Potassium 4.0 (3.5-5.1) mmol/L Chloride 103 (98-107) mmol/L Carbon Dioxide 24 (22-30) mmol/L Anion Gap 16.5 H (5-15) MEQ/L BUN 10 (7-17) mg/dL Creatinine 0.59 (0.52-1.04) mg/dL Estimated GFR > 60.0 ML/MIN Glucose 87 (74-106) mg/dL Calcium 10.1 (8.4-10.2) mg/dL Total Bilirubin 0.70 (0.2-1.3) mg/dL AST 20 (14-36) U/L ALT 13 (0-35) U/L Alkaline Phosphatase 74 (38-126) U/L Serum Total Protein 8.0 (6.3-8.2) g/dL Albumin 5.0 (3.5-5.0) g/dL - Progress Progress: improved (moderate improvement in headache, still some headache present) Blood Culture(s) Obtained: No Antibiotics given: No Counseled pt/family regarding: lab results, diagnosis, need for follow-up - Departure Time of Disposition: 22:10 Departure Disposition: Home Clinical Impression: Migraine with status migrainosus Qualifiers: Migraine type: without aura Intractability: intractable Qualified Code(s): G43.011 - Migraine without aura, intractable, with status migrainosus Condition: Stable Critical Care Time: Yes Critical Care Time(excluding separately billable procedures): 30-74 minutes Referrals: GATLUZ ELENA LEAL MD [Primary Care Provider] - Instructions: Migraine Headache (DC), Headache, Adult (DC) Additional Instructions: HEADACHE 1. After discharge from the emergency department, you should rest at home in a cool, dark, quiet place for 12-24 hours. 2. If any of the following signs or symptoms are noticed, you should be re- evaluated right away: A. Visual changes B. Stiff Neck C. Change in quality or location of pain D. Fever E. Recurrent vomiting 3. If pain medications were prescribed or given, they may cause drowsiness. Continue all your home meds, follow up with your neurologist. FADY LEI was seen on 08/16/18 n the Emergency Room. At that time you were treated for an emergent condition, during your visit Laboratory, Radiology and/or other procedures may have been ordered. It is very important that you follow-up with your Primary Care Physician LUZ ELENA ZAMARRIPA MD within the next 24-48 hours to review your Emergency Room visit and the final results of testing that was ordered. Some test results such as Urine Cultures, Blood Cultures, and other cultures if ordered will not be finalized for 24-48 hours. If you do not have a Primary Care Provider please call the medical records department at [phone] ext [phone] to obtain a copy of your results or you may sign into our patient portal to obtain these results by visiting us @ [email or web address] and completing the following steps: 1. Click on the Patient Portal link 2. Click the Patient Self Enrollment Link to complete the enrollment form and entering your 3. Once the enrollment form is completed you will receive an email with a temporary ID and password at the email address you provided. 4. Next choose a user name and password. Your user name must be at least 4 characters long and your password must be at least 4 characters long. 5. Choose a security question from the list and provide your answer to the question. If you already have signed into the Health Portal you may access your Health Care Information 13/05 by the following steps: 1. Login to our website @ [email or web address] 2. Enter your original user name and password. FAQS The [facility] Health Portal is an online tool that contains your Lab Results, Radiology Reports, Visit History, Discharge Instructions and Health Summary Lab and Radiology Results will not be available for 72 hours on the portal. The Portal is a secure site, passwords are encryted and URLs are re-written so they cannot be copied and pasted. You and authorized family members are the only ones who can access your Portal. Also there is a timeout feature that protects your information if you leave the Portal page open. If you have technical difficulty please use the Contact Us link on the page this will allow you to submit any questions you have regarding the Portal or you may contact the Medical Record Department at [phone] ext [phone].
[2018-08-16] MEDS ORDERED: Phenergan 25 MG INJ IM ONE (19:53)
[2018-08-16] MEDS ORDERED: BENADRYL 50 MG/ML ONE (20:07)
[2018-08-16] MEDS ORDERED: Phenergan 25 MG INJ ONE (20:07)
[2018-08-16] MEDS ORDERED: Sodium Chloride 0.9% 1000 ML 1,000 ML ONE ×2 (20:07→21:12)
[2018-08-16 20:20] LABS: BASOPHIL % 0.3 % (0.0-0.4); Basophil (Absolute #) 0.03 (0-0.4); Eosinophil % 4.4 % (0.00-5.0); Granulocyte Absolute (ANC) 5.08 (1.4-6.9); Granulocytes % 56.3 % (36.0-66.0); Hematocrit 40.9 % (35-47); Hemoglobin 13.3 gm/dl (12.0-16.0); Lymphocyte (Absolute #) 2.57 (1.0-4.6); Lymphocytes % 28.5 % (24.0-44.0); Mean Cell Volume 90.5 fl (78-100); Mean Corpuscular Hemoglobin 29.4 pg (26-32); Mean Corpuscular Hgb Concent. 32.5 g/dl (32-36); Mean Platelet Volume 11.8 fl (6-9.5); Monocyte (Absolute #) 0.95 (0.0-1.3); Monocytes % 10.5 % (0.0-12.0); Platelet Count 292 K/mm3 (150-450); Red Blood Count 4.52 M/mm3 (4.1-5.4); Red Cell Distribution Width 13.5 % (11.5-14.0)
[2018-08-16] MEDS ORDERED: Zofran 4 MG/2 ML VIAL IV ONE (20:32)
[2018-08-16] MEDS ORDERED: NALBUPHINE HCL 10 MG/1 ML INJECTION IV STA (20:33)
[2018-08-16] MEDS ORDERED: Zofran 4 MG/2 ML VIAL ONE (20:35)
[2018-08-16] MEDS ORDERED: Nubain 10 MG/ML ONE (20:36)
[2018-08-16 20:39] LABS: ALKALINE PHOSPHATASE 74 U/L (38-126); ANION GAP 16.5 MEQ/L (5-15); BLOOD UREA NITROGEN 10 mg/dL (7-17); CHLORIDE 103 mmol/L (98-107); Calcium 10.1 mg/dL (8.4-10.2); Carbon Dioxide 24 mmol/L (22-30); Creatinine 1 0.59 mg/dL (0.52-1.04); Glucose 87 mg/dL (74-106); SGOT/AST 20 U/L (14-36); SGPT/ALT 13 U/L (0-35); SODIUM 140 mmol/L (137-145)
[2018-08-16] MEDS ORDERED: THORAZINE 50 MG*** 50 MG in Sodium Chloride 0.9% 100 ML IVPB 100 ML IV ONE (20:53)
[2018-08-16] MEDS ORDERED: THORAZINE 50 MG ONE (21:12)
[2018-08-16] MEDS ORDERED: Sodium Chloride 0.9% 100 ML IVPB 100 ML IV ONE (21:12)
[2018-08-16] MEDS ORDERED: SUBLIMAZE 100 MCG/2 ML IV ONE (21:32)
[2018-08-16] MEDS ORDERED: SUBLIMAZE 100 MCG/2 ML ONE (21:54)
[2018-08-16 22:27] VITALS: BP 99/59; PULSE 104; O2SAT 99
== END 2018-08-16 22:38 | disposition home or self-care (01) ==
LOC: ED 18:55
DX: G43.011 Migraine without aura, intractable, with status migrainosus (principal); R07.89 Other chest pain; Z79.899 Other long term (current) drug therapy
CPT/HCPCS: 36000; 36415; 80053; 85025; 96360; 96361; 96365; 96372; 96374; 96375; 99284; J1200; J2300; J2405; J2550; J3010; J3230

== ENCOUNTER 2018-08-21 18:45 | Emergency (ER) | payer OTHER ==
[2018-08-21] MEDS ORDERED: BENADRYL 50 MG/ML IV ONE ×2 (19:19→19:33)
[2018-08-21] MEDS ORDERED: Sodium Chloride 0.9% 1000 ML 1,000 ML IV STA (19:19)
--- NOTE | 2018-08-21 19:24 | ERPHSYRPT ---
- History of Present Illness Time Seen by Provider: 08/21/18 19:21 Source: patient Patient Subjective Stated Complaint: 2 days of headache, pt has hx of headaches , has tried DHE45, and motorin, advil,baclofen, with no relief, nuasea and vomiting Triage Nursing Assessment: pt alert, walked in with sun glasses on, resp easy.skin w/d/p. moves all ext well Physician History: 27-year-old white female with history of migraines, irritable bowel who states she has seizures with migraines. Arrives with a headache photophobia symptoms for 2 days states she's tried multiple medications at home. Patient does see a headache specialist. Past medical history includes migraines, irritable bowel, seizures with migraines. Past surgical history includes left arm fracture, cholecystectomy. Timing/Duration: day(s) (2 days) Severity: moderate (him) Modifying Factors: Improves With: other (patient states she tried percocet, hydrocodone, baclofen ativan at home) Associated Symptoms: nausea Allergies/Adverse Reactions: ketorolac [From Toradol] Allergy (Verified 08/21/18 18:57) morphine Allergy (Verified 08/21/18 18:57) Home Medications: Dihydroergotamine Mesylate [D.h.e.45] 1 mg IJ DAILY 07/13/18 [History] Cyclobenzaprine HCl [Flexeril] 5 mg PO DAILY 08/16/18 [History] Lorazepam 0.5 mg [Ativan 0.5 MG] 0.5 mg PO DAILY 08/16/18 [History] Baclofen 10 mg DAILY 08/21/18 [History] Oxycodone / APAP 10/325 mg [Oxycodone-Acetaminophen 10-325] 1 tab DAILY [History] Hx Tetanus, Diphtheria Vaccination/Date Given: Yes (2015) Hx Influenza Vaccination/Date Given: No Hx Pneumococcal Vaccination/Date Given: No - Review of Systems Constitutional: No Fever, No Chills Eyes: Photophobia, No Discharge, No Eye Pain, No Eye Redness, No Itchy, No Tearing, No Vision Changes, No Double Vision, No Foreign Body Sensation Ears, Nose, & Throat: No Symptoms Respiratory: No Cough, No Dyspnea Cardiac: No Chest Pain, No Edema, No Syncope Abdominal/Gastrointestinal: No Abdominal Pain, No Nausea, No Vomiting, No Diarrhea Genitourinary Symptoms: No Dysuria Musculoskeletal: No Symptoms, No Back Pain, No Neck Pain Skin: No Rash Neurological: Headache, No Dizziness, No Focal Weakness, No Sensory Changes Psychological: No Symptoms Endocrine: No Symptoms All Other Systems: Reviewed and Negative - Past Medical History Pertinent Past Medical History: Yes Neurological History: Migraines ENT History: No Pertinent History Cardiac History: No Pertinent History Respiratory History: No Pertinent History Endocrine Medical History: No Pertinent History Musculoskeletal History: No Pertinent History GI Medical History: Irritable Bowel History: No Pertinent History Psycho-Social History: No Pertinent History Female Reproductive Disorders: No Pertinent History Other Medical History: seizures with migraines - Past Surgical History Past Surgical History: Yes Neuro Surgical History: No Pertinent History Cardiac: No Pertinent History Respiratory: No Pertinent History Gastrointestinal: Cholecystectomy Genitourinary: No Pertinent History Musculoskeletal: No Pertinent History Female Surgical History: Lumpectomy Other Surgical History: L ARM FRACTURE, R lumpectomy. - Social History Smoking Status: Never smoker Exposure to second hand smoke: No Drug Use: none Patient Lives Alone: No - Female History Hx Last Menstrual Period: 3 weeks ago Hx Now: No - Nursing Vital Signs Nursing Vital Signs: Initial Vital Signs Temperature 98.8 F 08/21/18 18:52 Pulse Rate 128 H 08/21/18 18:52 Respiratory Rate 16 08/21/18 18:52 Blood Pressure 119/84 08/21/18 18:52 O2 Sat by Pulse Oximetry 99 08/21/18 18:52 Pain Scale Pain Intensity 3 - Physical Exam General Appearance: mild distress Eye Exam: PERRL/EOMI, eyes nml inspection Ears, Nose, Throat Exam: normal ENT inspection, TMs normal, pharynx normal, moist mucous membranes Neck Exam: normal inspection, non-tender, supple, full range of motion Respiratory Exam: normal breath sounds, lungs clear, No respiratory distress Cardiovascular Exam: regular rate/rhythm, normal heart sounds, normal peripheral pulses Gastrointestinal/Abdomen Exam: soft, normal bowel sounds, No tenderness, No mass Back Exam: normal inspection, normal range of motion, No CVA tenderness, No vertebral tenderness Extremity Exam: normal inspection, normal range of motion, pelvis stable Neurologic Exam: alert, 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, cooperative, miller helper distillery II-XII nml as tested, normal mood/affect, nml cerebellar function, nml station & gait, sensation nml, No motor deficits Skin Exam: normal color, warm, dry, No rash Lymphatic Exam: No adenopathy SpO2 Interpretation: normal (99%) SpO2: 99 Oxygen Delivery: Room Air Ordered Tests: Active Orders 24 hr Category Date Time Status IV Insertion STAT Care 08/21/18 19:19 Active Pulse Oximetry (ED) STAT Care 08/21/18 19:19 Active BMP Stat Lab 08/21/18 20:33 Completed CBC W DIFF Stat Lab 08/21/18 20:33 Completed HCG QUALITATIVE,SERUM Stat Lab 08/21/18 20:33 Completed Urine Triage Profile Stat Lab 08/21/18 21:28 Completed Medication Summary Discontinued Medications Generic Name Dose Route Start Last Admin Trade Name Freq PRN Reason Stop Dose Admin Diphenhydramine HCl 25 mg 08/21/18 19:19 Benadryl 50 Mg/Ml IV 08/21/18 19:20 STAT ONE Diphenhydramine HCl 50 mg 08/21/18 19:33 Benadryl 50 Mg/Ml IV 08/21/18 19:34 STAT ONE Diphenhydramine HCl Confirm 08/21/18 19:35 Benadryl 50 Mg/Ml Administered 08/21/18 19:36 Dose 50 mg .ROUTE .STK-MED ONE Diphenhydramine HCl 50 mg 08/21/18 20:08 08/21/18 20:12 Benadryl 50 Mg/Ml IM 08/21/18 20:09 50 mg STAT ONE Administration Sodium Chloride 1,000 mls @ 999 mls/hr 08/21/18 19:19 08/21/18 22:39 Sodium Chloride 0.9% 1000 Ml IV 08/21/18 20:19 Not Given .Q1H1M STA Sodium Chloride Confirm 08/21/18 19:36 Sodium Chloride 0.9% 1000 Ml Administered 08/21/18 19:37 Dose 1,000 mls @ ud .ROUTE .STK-MED ONE Nalbuphine HCl 10 mg 08/21/18 20:39 08/21/18 21:33 Nubain 10 Mg/Ml IM 08/21/18 20:40 10 mg STAT ONE Administration Nalbuphine HCl Confirm 08/21/18 21:31 Nubain 10 Mg/Ml Administered 08/21/18 21:32 Dose 10 mg .ROUTE .STK-MED ONE Promethazine HCl 12.5 mg 08/21/18 21:59 08/21/18 22:11 Phenergan 25 Mg Inj IM 08/21/18 22:00 12.5 mg STAT ONE Administration Promethazine HCl Confirm 08/21/18 22:08 Phenergan 25 Mg Inj Administered 08/21/18 22:09 Dose 25 mg .ROUTE .STK-MED ONE Lab/Rad Data: Laboratory Result Diagrams 08/21/18 20:33 08/21/18 20:33 Laboratory Results 08/21/18 08/21/18 08/21/18 Range/Units Unknown 21:28 20:33 WBC (4.0-10.5) K/mm3 RBC (4.1-5.4) M/mm3 Hgb (12.0-16.0) gm/dl Hct (35-47) % MCV (78-100) fl MCH (26-32) pg MCHC (32-36) g/dl RDW (11.5-14.0) % Plt Count (150-450) K/mm3 MPV (6-9.5) fl Gran % (36.0-66.0) % Eos # (Auto) (0-0.5) Absolute Lymphs (auto) (1.0-4.6) Absolute Monos (auto) (0.0-1.3) Lymphocytes % (24.0-44.0) % Monocytes % (0.0-12.0) % Eosinophils % (0.00-5.0) % Basophils % (0.0-0.4) % Absolute Granulocytes (1.4-6.9) Basophils # (0-0.4) Sodium (137-145) mmol/L Potassium (3.5-5.1) mmol/L Chloride (98-107) mmol/L Carbon Dioxide (22-30) mmol/L Anion Gap (5-15) MEQ/L BUN (7-17) mg/dL Creatinine (0.52-1.04) mg/dL Estimated GFR ML/MIN Glucose (74-106) mg/dL Calcium (8.4-10.2) mg/dL Serum , Qual NEGATIVE (Negative) Urine Color YELLOW (YELLOW) Urine Appearance CLOUDY (CLEAR) Urine pH 7.0 (5-6) Ur Specific [place] 1.011 (1.005-1.025) Urine Protein NEGATIVE (Negative) Urine Ketones NEGATIVE (NEGATIVE) Urine Blood NEGATIVE (0-5) Marck/ul Urine Nitrite NEGATIVE (NEGATIVE) Urine Bilirubin NEGATIVE (NEGATIVE) Urine Urobilinogen NEGATIVE (0-1) mg/dL Ur Leukocyte Esterase SMALL (NEGATIVE) Urine WBC (Auto) 6-10 (0-5) /HPF Urine RBC (Auto) NONE (0-2) /HPF U Epithel Cells (Auto) RARE (FEW) /HPF Urine Bacteria (Auto) RARE (NEGATIVE) /HPF Urine Culture Reflexed YES (NO) Urine Glucose NEGATIVE (NEGATIVE) mg/dL Urine Opiates Level NEGATIVE (NEGATIVE) Ur Methadone NEGATIVE (NEGATIVE) Urine Barbiturates NEGATIVE (NEGATIVE) Ur Phencyclidine (PCP) NEGATIVE (NEGATIVE) Urine Amphetamine NEGATIVE (NEGATIVE) U Benzodiazepine Level NEGATIVE (NEGATIVE) Urine Cocaine NEGATIVE (NEGATIVE) Urine Marijuana (THC) NEGATIVE (NEGATIVE) 08/21/18 08/21/18 Range/Units 20:33 20:33 WBC 11.7 H (4.0-10.5) K/mm3 RBC 4.46 (4.1-5.4) M/mm3 Hgb 12.9 (12.0-16.0) gm/dl Hct 39.8 (35-47) % MCV 89.2 (78-100) fl MCH 28.9 (26-32) pg MCHC 32.4 (32-36) g/dl RDW 13.5 (11.5-14.0) % Plt Count 310 (150-450) K/mm3 MPV 10.5 H (6-9.5) fl Gran % 63.7 (36.0-66.0) % Eos # (Auto) 0.38 (0-0.5) Absolute Lymphs (auto) 2.79 (1.0-4.6) Absolute Monos (auto) 1.06 (0.0-1.3) Lymphocytes % 23.8 L (24.0-44.0) % Monocytes % 9.1 (0.0-12.0) % Eosinophils % 3.2 (0.00-5.0) % Basophils % 0.2 (0.0-0.4) % Absolute Granulocytes 7.46 H (1.4-6.9) Basophils # 0.02 (0-0.4) Sodium 139 (137-145) mmol/L Potassium 4.2 (3.5-5.1) mmol/L Chloride 104 (98-107) mmol/L Carbon Dioxide 24 (22-30) mmol/L Anion Gap 15.7 H (5-15) MEQ/L BUN 10 (7-17) mg/dL Creatinine 0.64 (0.52-1.04) mg/dL Estimated GFR > 60.0 ML/MIN Glucose 101 (74-106) mg/dL Calcium 9.7 (8.4-10.2) mg/dL Serum , Qual (Negative) Urine Color (YELLOW) Urine Appearance (CLEAR) Urine pH (5-6) Ur Specific [place] (1.005-1.025) Urine Protein (Negative) Urine Ketones (NEGATIVE) Urine Blood (0-5) Marck/ul Urine Nitrite (NEGATIVE) Urine Bilirubin (NEGATIVE) Urine Urobilinogen (0-1) mg/dL Ur Leukocyte Esterase (NEGATIVE) Urine WBC (Auto) (0-5) /HPF Urine RBC (Auto) (0-2) /HPF U Epithel Cells (Auto) (FEW) /HPF Urine Bacteria (Auto) (NEGATIVE) /HPF Urine Culture Reflexed (NO) Urine Glucose (NEGATIVE) mg/dL Urine Opiates Level (NEGATIVE) Ur Methadone (NEGATIVE) Urine Barbiturates (NEGATIVE) Ur Phencyclidine (PCP) (NEGATIVE) Urine Amphetamine (NEGATIVE) U Benzodiazepine Level (NEGATIVE) Urine Cocaine (NEGATIVE) Urine Marijuana (THC) (NEGATIVE) - Progress Progress: improved Progress Note: 08/21/18 20:39 27-year-old white female with history of chronic migraines arrives with complaint of a headache for 2 days. No fevers positive photophobia initially told me that she hadn't seen Arlet for several months. Later tells me that she hasn't seen at [facility] presented to the emergency room for a migraine apparently 2 days ago patient appears to be stable labs have been ordered patient has been given Benadryl 50 mg IM. Patient states that she doesn't like the way Compazine or Reglan makes her feel. Patient on multiple medications for migraines at home Review of chart from [facility] dated 08/18/2018 show the patient received Benadryl Phenergan and Nubain IM. Will go ahead and give patient Nubain 10 mg IM expect patient will be able to follow-up with her family doctor or her neurologist patient appears to be stable. 08/21/18 21:59 Patient starting to feel better after Benadryl 50 mg IM Nubain 10 mg IM will give patient 12.5 mg Phenergan. Patient sees a internal medicine physician in [place] for her headaches and is due to see a neurologist in several weeks. Patient is feeling better not completely pain-free. Will discharge patient home. - Departure Time of Disposition: 22:29 Departure Disposition: Home Clinical Impression: Migraine headache Qualifiers: Migraine type: unspecified Status migrainosus presence: without status migrainosus Intractability: not intractable Qualified Code(s): G43.909 - Migraine, unspecified, not intractable, without status migrainosus Condition: Fair Critical Care Time: No Referrals: LUZ ELENA ZAMARRIPA MD [Primary Care Provider] - Instructions: Headache, Adult (DC) Additional Instructions: Return home. Rest in a dark quiet room. Medications as prescribed by your family doctor/neurologist. Follow-up with your family doctor/neurologist. Return for acute distress or for severe symptoms.
[2018-08-21] MEDS ORDERED: BENADRYL 50 MG/ML ONE (19:35)
[2018-08-21] MEDS ORDERED: Sodium Chloride 0.9% 1000 ML 1,000 ML ONE (19:36)
[2018-08-21] MEDS ORDERED: BENADRYL 50 MG/ML IM ONE (20:08)
[2018-08-21 20:34] LABS: BASOPHIL % 0.2 % (0.0-0.4); Basophil (Absolute #) 0.02 (0-0.4); Eosinophil % 3.2 % (0.00-5.0); Eosinophil (Absolute #) 0.38 (0-0.5); Granulocyte Absolute (ANC) 7.46 (1.4-6.9); Granulocytes % 63.7 % (36.0-66.0); Hematocrit 39.8 % (35-47); Hemoglobin 12.9 gm/dl (12.0-16.0); Lymphocyte (Absolute #) 2.79 (1.0-4.6); Lymphocytes % 23.8 % (24.0-44.0); Mean Cell Volume 89.2 fl (78-100); Mean Corpuscular Hemoglobin 28.9 pg (26-32); Mean Corpuscular Hgb Concent. 32.4 g/dl (32-36); Mean Platelet Volume 10.5 fl (6-9.5); Monocyte (Absolute #) 1.06 (0.0-1.3); Monocytes % 9.1 % (0.0-12.0); Platelet Count 310 K/mm3 (150-450); Red Blood Count 4.46 M/mm3 (4.1-5.4); Red Cell Distribution Width 13.5 % (11.5-14.0); White Blood Count 11.7 K/mm3 (4.0-10.5)
[2018-08-21] MEDS ORDERED: Nubain 10 MG/ML IM ONE (20:39)
[2018-08-21 20:53] LABS: ANION GAP 15.7 MEQ/L (5-15); BLOOD UREA NITROGEN 10 mg/dL (7-17); CHLORIDE 104 mmol/L (98-107); Calcium 9.7 mg/dL (8.4-10.2); Carbon Dioxide 24 mmol/L (22-30); Creatinine 1 0.64 mg/dL (0.52-1.04); Glucose 101 mg/dL (74-106); Potassium 4.2 mmol/L (3.5-5.1); SODIUM 139 mmol/L (137-145)
[2018-08-21] MEDS ORDERED: Nubain 10 MG/ML ONE (21:31)
[2018-08-21 21:39] VITALS: BP 98/61; PULSE 113
[2018-08-21] MEDS ORDERED: Phenergan 25 MG INJ IM ONE (21:59)
[2018-08-21 22:01] VITALS: O2SAT 99
[2018-08-21 22:08] LABS: Appearance CLOUDY (CLEAR); Bilirubin NEGATIVE (NEGATIVE); Blood NEGATIVE Ery/ul (0-5); Glucose NEGATIVE (NEGATIVE); Ketones NEGATIVE (NEGATIVE); Leukocyte Esterase SMALL (NEGATIVE); Nitrite NEGATIVE (NEGATIVE); Protein,Urine Dip NEGATIVE (Negative); Specific Gravity 1.011 (1.005-1.025); Urobilinogen NEGATIVE mg/dL (0-1)
[2018-08-21] MEDS ORDERED: Phenergan 25 MG INJ ONE (22:08)
[2018-08-21 22:13] LABS: Amphetamine,Urine NEGATIVE (NEGATIVE); Barbiturate,Urine NEGATIVE (NEGATIVE); Benzodiazepine,Urine NEGATIVE (NEGATIVE); Methadone,Urine NEGATIVE (NEGATIVE); Opiate,Urine NEGATIVE (NEGATIVE); PCP,Urine NEGATIVE (NEGATIVE); THC,Urine NEGATIVE (NEGATIVE)
[2018-08-21 22:14] LABS: Cocaine,Urine NEGATIVE (NEGATIVE)
== END 2018-08-21 22:41 | disposition home or self-care (01) ==
LOC: ED 18:45
DX: G43.909 Migraine, unspecified, not intractable, without status migrainosus (principal); Z79.899 Other long term (current) drug therapy
CPT/HCPCS: 36415; 80048; 80307; 81001; 81025; 85025; 87086; 96372; 99284; J1200; J2300; J2550

== ENCOUNTER 2018-09-04 17:59 | Emergency (ER) | payer OTHER ==
[2018-09-04] MEDS ORDERED: BENADRYL 50 MG/ML IV ONE (18:13)
[2018-09-04] MEDS ORDERED: TYLENOL EXTRA STRENGTH 500 MG PO STA (18:14)
[2018-09-04] MEDS ORDERED: Sodium Chloride 0.9% 1000 ML 1,000 ML IV STA (18:14)
--- NOTE | 2018-09-04 18:17 | ERPHSYRPT ---
- History of Present Illness Source: patient Patient Subjective Stated Complaint: Pt states "I have a migraine again." Triage Nursing Assessment: Pt alert and oriented X3, skin pwd. Pt ambulates with an upright steady gait, able to speak in clear full sentences. pt in no apparent respiratory distress. Hx Tetanus, Diphtheria Vaccination/Date Given: Yes Hx Influenza Vaccination/Date Given: No Hx Pneumococcal Vaccination/Date Given: No Immunizations Up to Date: Yes <MAO FITZPATRICK - Last Filed: 09/04/18 18:53> <TBOY DOVE - Last Filed: 09/04/18 21:03> - History of Present Illness Time Seen by Provider: 09/04/18 18:14 Physician History: mild to mod familiar and recurrent migraine since she was 13 yo, no fever, no NV , +photosen, no injury, speech fluent (MAO FITZPATRICK) Allergies/Adverse Reactions: ketorolac [From Toradol] Allergy (Verified 08/21/18 18:57) morphine Allergy (Verified 08/21/18 18:57) Home Medications: Dihydroergotamine Mesylate [D.h.e.45] 1 mg IJ DAILY 07/13/18 [History] Cyclobenzaprine HCl [Flexeril] 5 mg PO DAILY 08/16/18 [History] Lorazepam 0.5 mg [Ativan 0.5 MG] 0.5 mg PO DAILY 08/16/18 [History] Baclofen 10 mg DAILY 08/21/18 [History] Oxycodone / APAP 10/325 mg [Oxycodone-Acetaminophen 10-325] 1 tab DAILY [History] - Review of Systems Constitutional: No Fever Eyes: No Vision Changes Ears, Nose, & Throat: No Nose Congestion Respiratory: No Cough, No Dyspnea Cardiac: No Chest Pain Abdominal/Gastrointestinal: No Abdominal Pain Musculoskeletal: No Back Pain, No Neck Pain Skin: No Rash Neurological: Headache, No Dizziness, No Focal Weakness <MAO FITZPATRICK - Last Filed: 09/04/18 18:53> - Past Medical History Pertinent Past Medical History: Yes Neurological History: Migraines ENT History: No Pertinent History Cardiac History: No Pertinent History Respiratory History: No Pertinent History Endocrine Medical History: No Pertinent History Musculoskeletal History: No Pertinent History GI Medical History: Irritable Bowel History: No Pertinent History Psycho-Social History: No Pertinent History Female Reproductive Disorders: No Pertinent History Other Medical History: seizures with migraines - Past Surgical History Past Surgical History: Yes Neuro Surgical History: No Pertinent History Cardiac: No Pertinent History Respiratory: No Pertinent History Gastrointestinal: Cholecystectomy Genitourinary: No Pertinent History Musculoskeletal: No Pertinent History Female Surgical History: Lumpectomy Other Surgical History: L ARM FRACTURE, R lumpectomy. - Social History Smoking Status: Never smoker Exposure to second hand smoke: No Drug Use: none Patient Lives Alone: No - Female History Hx Last Menstrual Period: 08/30/2018 Hx Now: No <MAO FITZPATRICK - Last Filed: 09/04/18 18:53> - Physical Exam General Appearance: no apparent distress Eye Exam: PERRL/EOMI, eyes nml inspection Ears, Nose, Throat Exam: moist mucous membranes Neck Exam: normal inspection, non-tender, supple, full range of motion, No meningismus Respiratory Exam: normal breath sounds, lungs clear Cardiovascular Exam: regular rate/rhythm Gastrointestinal/Abdominal Exam: soft, No tenderness Extremity Exam: normal range of motion 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, 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, cooperative mandrel press hand Exam: 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, PERRL Skin Exam: warm, dry, other (cn 3 to 10 grossly intact and group insurance specialist equal) SpO2 Interpretation: normal SpO2: 99 Oxygen Delivery: Room Air <MAO FITZPATRICK - Last Filed: 09/04/18 18:53> - Nursing Vital Signs Nursing Vital Signs: Initial Vital Signs Temperature 99.3 F 09/04/18 18:06 Pulse Rate 94 H 09/04/18 18:06 Respiratory Rate 16 09/04/18 18:06 Blood Pressure 145/92 09/04/18 18:06 O2 Sat by Pulse Oximetry 99 09/04/18 18:06 Pain Scale Pain Intensity 8 Ordered Tests: Active Orders 24 hr Category Date Time Status IV Insertion STAT Care 09/04/18 18:14 Active Medication Summary Discontinued Medications Generic Name Dose Route Start Last Admin Trade Name Megaq PRN Reason Stop Dose Admin Acetaminophen 1,000 mg 09/04/18 18:14 09/04/18 18:35 Tylenol Extra Strength 500 Mg PO 09/04/18 18:15 1,000 mg STAT STA Administration Acetaminophen Confirm 09/04/18 18:31 Tylenol Extra Strength 500 Mg Administered 09/04/18 18:32 Dose 1,000 mg .ROUTE .STK-MED ONE Diphenhydramine HCl 50 mg 09/04/18 18:13 09/04/18 18:35 Benadryl 50 Mg/Ml IV 09/04/18 18:14 50 mg STAT ONE Administration Diphenhydramine HCl Confirm 09/04/18 18:31 Benadryl 50 Mg/Ml Administered 09/04/18 18:32 Dose 50 mg .ROUTE .STK-MED ONE Sodium Chloride 1,000 mls @ 999 mls/hr 09/04/18 18:14 09/04/18 19:54 Sodium Chloride 0.9% 1000 Ml IV 09/04/18 19:14 Infused .Q1H1M STA Infusion Sodium Chloride Confirm 09/04/18 18:31 Sodium Chloride 0.9% 1000 Ml Administered 09/04/18 18:32 Dose 1,000 mls @ ud .ROUTE .STK-MED ONE Oxycodone/Acetaminophen 1 tab 09/04/18 20:42 09/04/18 20:49 Percocet Tablet 5/325mg PO 09/04/18 20:43 1 tab STAT STA Administration Oxycodone/Acetaminophen Confirm 09/04/18 20:46 Percocet Tablet 5/325mg Administered 09/04/18 20:47 Dose 1 tab .ROUTE .STK-MED ONE Promethazine HCl 12.5 mg 09/04/18 20:40 09/04/18 21:00 Phenergan 25 Mg Inj IV 09/04/18 20:41 12.5 mg STAT ONE Administration Promethazine HCl Confirm 09/04/18 20:46 Phenergan 25 Mg Inj Administered 09/04/18 20:47 Dose 25 mg .ROUTE .STK-MED ONE <MAO FITZPATRICK - Last Filed: 09/04/18 18:53> - Progress Progress: re-examined Air Movement: fair <TOBY DOVE - Last Filed: 09/04/18 21:03> - Progress Progress Note: 09/04/18 18:[address] Dove at 19:00 (MAO FITZPATRICK) 09/04/18 20:26 This is a 27-year-old white female with recurrent presentation secondary to migraines arrives with complaint of migraine, photophobia some nausea symptoms going on since yesterday no fevers. patient initially seen by Dr. Fitzpatrick given IV normal saline and benadryl states headaches continues. Patient has a history of chronic migraines Past medical history includes migraines, irritable bowel, seizures, Past surgical history includes cholecystectomy, lumpectomy, left arm fracture Social history patient denies tobacco alcohol illicit drug use Patient's vital signs are stable. Physical examination well-developed well-nourished white female in mild distress. Head is atraumatic normocephalic. Eyes PERRLA EOMI fundi are unremarkable. Ears TMs osborne intact bilaterally. Nose is clear. Throat is clear. Neck is supple. Lungs are clear. Heart regular rate and rhythm without murmur. Abdomen soft nontender nondistended positive bowel sounds. Extremities full range of motion pulse equal symmetrical 2 over 4. Neuro cranial nerves II through XII are intact DTRs symmetrical ago 2 over 4 Dev[place]ah Coma Scale is 15. Impression recurrent migraine. Plan patient is already received IV normal saline and Benadryl. Will add Phenergan. Really do not feel that narcotics are indicated in this patient I've discussed this with her in the past. Patient states she is supposed to start a new medication for her migraines she had told me this last time she presented. 09/04/18 21:02 Patient was given one Percocet 5/325 in addition to Benadryl and Phenergan. Patient appears to be stable she is asking when she can leave. Will discharge. (TOBY DOVE) <MAO FITZPATRICK - Last Filed: 09/04/18 18:53> - Departure Time of Disposition: 21:03 Departure Disposition: Home Critical Care Time: No <TOBY DOVE - Last Filed: 09/04/18 21:03> - Departure Clinical Impression: Migraine Qualifiers: Migraine type: unspecified Status migrainosus presence: without status migrainosus Intractability: not intractable Qualified Code(s): G43.909 - Migraine, unspecified, not intractable, without status migrainosus Condition: Fair Referrals: LUZ ELENA ZAMARRIPA MD [Primary Care Provider] - Additional Instructions: Return home rest. Dark quiet room. Medications as prescribed by your family doctor or pain document control associate. Follow-up with your family doctor or pain document control associate. Return for acute distress or for severe symptoms.
[2018-09-04] MEDS ORDERED: Sodium Chloride 0.9% 1000 ML 1,000 ML ONE (18:31)
[2018-09-04] MEDS ORDERED: BENADRYL 50 MG/ML ONE (18:31)
[2018-09-04] MEDS ORDERED: TYLENOL EXTRA STRENGTH 500 MG ONE (18:31)
[2018-09-04] MEDS ORDERED: Phenergan 25 MG INJ IV ONE (20:40)
[2018-09-04] MEDS ORDERED: PERCOCET TABLET 5/325MG PO STA (20:42)
[2018-09-04 20:46] VITALS: O2SAT 98
[2018-09-04] MEDS ORDERED: Phenergan 25 MG INJ ONE (20:46)
[2018-09-04] MEDS ORDERED: PERCOCET TABLET 5/325MG ONE (20:46)
[2018-09-04 21:11] VITALS: BP 125/73; PULSE 88
== END 2018-09-04 21:19 | disposition home or self-care (01) ==
LOC: ED 17:59
DX: G43.909 Migraine, unspecified, not intractable, without status migrainosus (principal); Z79.899 Other long term (current) drug therapy
CPT/HCPCS: 36000; 96360; 96374; 96375; 99284; J1200; J2550; A9270-GY

== ENCOUNTER 2018-12-02 18:28 | Emergency (ER) | payer OTHER ==
[2018-12-02] MEDS ORDERED: Compazine 10 MG/2 ML IV ONE (19:24)
[2018-12-02] MEDS ORDERED: Dilaudid 4 MG Tab PO STA (19:25)
[2018-12-02] MEDS ORDERED: Phenergan 25 MG INJ IV ONE (20:27)
[2018-12-02] MEDS ORDERED: Phenergan 25 MG INJ ONE (20:34)
[2018-12-02] MEDS ORDERED: BENADRYL 50 MG/ML IV ONE (21:51)
[2018-12-02] MEDS ORDERED: BENADRYL 50 MG/ML ONE (21:54)
[2018-12-02] MEDS ORDERED: Transderm Scop 1.5MG Patch TOP ONE (22:14)
[2018-12-02] MEDS ORDERED: DILAUDID 2 MG INJECTION IV STA (22:15)
[2018-12-02] MEDS ORDERED: Hydromorphone 1 mg/ml Ampule ONE (22:27)
[2018-12-02 23:57] VITALS: O2SAT 98
--- NOTE | 2018-12-03 00:12 | ERPHSYRPT ---
- History of Present Illness Source: patient Exam Limitations: no limitations Patient Subjective Stated Complaint: patient has had an ongoing migraine for 4 days. She does see Dr Junior at [facility] regarding migraines. Reports nausea and vomiting and cannot keep her medicine down long enough for it to work and ease her pain Triage Nursing Assessment: pt A&O x4. Skin pink dry and clammy, goosebumps observed on arms. Patient is closing her eyes and appears to be in pain. No other abnormalities upon assessment Physician History: Pt is a 28 y/o female with a h/o migraines. Pt states, treated by Neurology and was placed on preventative medication, pain control, Triptans, and new AB medication, with no improvement. She started having current migraine about 4 days ago, and secondary to N/V could not hold to her pain meds, and having no relief. Pt denies aura. She does have photophobia. No F/C/S. No abdominal pain. No change in sensations, or focality. Timing/Duration: day(s) Severity: severe Character of Deficits: none Deficits: no difficulties Baseline/Normal Cognition: alert 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 Associated Symptoms: headache Allergies/Adverse Reactions: ketorolac [From Toradol] Allergy (Verified 08/21/18 18:57) morphine Allergy (Verified 08/21/18 18:57) Home Medications: Dihydroergotamine Mesylate [D.h.e.45] 1 mg IJ DAILY 07/13/18 [History] Cyclobenzaprine HCl [Flexeril] 5 mg PO DAILY 08/16/18 [History] Lorazepam 0.5 mg [Ativan 0.5 MG] 0.5 mg PO DAILY 08/16/18 [History] Baclofen 10 mg DAILY 08/21/18 [History] Oxycodone / APAP 10/325 mg [Oxycodone-Acetaminophen 10-325] 1 tab DAILY [History] Hx Tetanus, Diphtheria Vaccination/Date Given: No Hx Influenza Vaccination/Date Given: No Hx Pneumococcal Vaccination/Date Given: No Immunizations Up to Date: Yes - Review of Systems Constitutional: No Fever, No Chills Eyes: No Symptoms Respiratory: No Cough, No Dyspnea Cardiac: No Chest Pain, No Edema, No Syncope Abdominal/Gastrointestinal: Nausea, Vomiting, No Abdominal Pain, No Diarrhea Musculoskeletal: No Back Pain, No Neck Pain Neurological: Headache - Past Medical History Pertinent Past Medical History: Yes Neurological History: Migraines, Seizures ENT History: No Pertinent History Cardiac History: No Pertinent History Respiratory History: No Pertinent History Endocrine Medical History: No Pertinent History Musculoskeletal History: Fractures GI Medical History: No Pertinent History History: No Pertinent History Psycho-Social History: No Pertinent History Female Reproductive Disorders: Other Other Medical History: left arm fracture , right lumpectomy, - Past Surgical History Past Surgical History: Yes Neuro Surgical History: No Pertinent History Cardiac: No Pertinent History Respiratory: No Pertinent History Gastrointestinal: Appendectomy, Cholecystectomy Genitourinary: No Pertinent History Musculoskeletal: Orthopedic Surgery Female Surgical History: Lumpectomy Other Surgical History: surgery to left arm after fracture - Social History Smoking Status: Never smoker Exposure to second hand smoke: No Drug Use: none Patient Lives Alone: No - Female History Hx Last Menstrual Period: 11/09/18 Hx Now: No - Nursing Vital Signs Nursing Vital Signs: Initial Vital Signs Temperature 99.0 F 12/02/18 18:29 Pulse Rate 88 12/02/18 18:29 Respiratory Rate 20 12/02/18 18:29 Blood Pressure 129/84 12/02/18 18:29 O2 Sat by Pulse Oximetry 99 12/02/18 18:29 Pain Scale Pain Intensity 10 - Devorah Coma Scale Best Eye Response (Devorah): (4) open spontaneously Best Verbal Response (Devorah): (5) oriented Best Motor Response (Devorah): (6) obeys commands Devorah Total: 15 - Physical Exam General Appearance: moderate distress Eye Exam: bilateral eye: PERRL, EOMI Respiratory: normal breath sounds, lungs clear, airway intact, No respiratory distress Cardiovascular: regular rate/rhythm, No edema Gastrointestinal: soft, No tenderness, No distention Extremity Exam: normal inspection, No pedal edema 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, 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: 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, PERRL, tongue midline Motor/Sensory: no motor deficit, no sensory deficit SpO2: 98 - Course Nursing assessment & vital signs reviewed: Yes Ordered Tests: Medication Summary Discontinued Medications Generic Name Dose Route Start Last Admin Trade Name Freq PRN Reason Stop Dose Admin Diphenhydramine HCl 50 mg 12/02/18 21:51 12/02/18 21:57 Benadryl 50 Mg/Ml IV 12/02/18 21:52 25 mg STAT ONE Administration Diphenhydramine HCl Confirm 12/02/18 21:54 Benadryl 50 Mg/Ml Administered 12/02/18 21:55 Dose 50 mg .ROUTE .STK-MED ONE Hydromorphone HCl 2 mg 12/02/18 19:25 12/02/18 20:51 Dilaudid 4 Mg Tab PO 12/02/18 19:26 2 mg ONCE STA Administration Hydromorphone HCl 2 mg 12/02/18 22:15 12/02/18 22:27 Dilaudid 2 Mg Injection IV 12/02/18 22:16 2 mg ONCE STA Administration Hydromorphone HCl Confirm 12/02/18 22:27 Hydromorphone 1 Mg/Ml Ampule Administered 12/02/18 22:28 Dose 2 mg .ROUTE .STK-MED ONE Prochlorperazine Edisylate 10 mg 12/02/18 19:24 12/02/18 20:51 Compazine 10 Mg/2 Ml IV 12/02/18 19:25 Not Given STAT ONE Promethazine HCl 25 mg 12/02/18 20:27 12/02/18 20:51 Phenergan 25 Mg Inj IV 12/02/18 20:28 25 mg STAT ONE Administration Promethazine HCl Confirm 12/02/18 20:34 Phenergan 25 Mg Inj Administered 12/02/18 20:35 Dose 25 mg .ROUTE .STK-MED ONE Scopolamine HBr 1.5 mg 12/02/18 22:14 12/02/18 22:24 Transderm Scop 1.5mg Patch TOP 12/02/18 22:15 1.5 mg STAT ONE Administration - Progress Progress: improved Progress Note: 12/03/18 00:12 Pt presented with a migraine. She got Dilaudid PO and Phenergan. She did vomit the medication and got Benadryl that gave her a rash. Pt was given Dilaudid IV and Scopolamine patch. She slowely improved and is cleared for d/c. Will see patient in: office Counseled pt/family regarding: need for follow-up - Departure Time of Disposition: 00:14 Departure Disposition: Home Clinical Impression: Migraine Condition: Stable Critical Care Time: No Referrals: LUZ ELENA ZAMARRIPA MD [Primary Care Provider] - Additional Instructions: F/U with your Neurologist in the AM for adjustment in therapy.
[2018-12-03 00:27] VITALS: BP 118/78; PULSE 88
== END 2018-12-03 00:29 | disposition home or self-care (01) ==
LOC: ED 18:28
DX: G43.909 Migraine, unspecified, not intractable, without status migrainosus (principal)
CPT/HCPCS: 96374; 96375; 99284; J1170; J1200; J2550; A9270-GY

== ENCOUNTER 2019-04-04 16:38 | Emergency (ER) | payer OTHER ==
[2019-04-04 16:50] VITALS: BP 127/80; O2SAT 99
[2019-04-04] MEDS ORDERED: Phenergan 25 MG INJ IM ONE (17:18)
[2019-04-04] MEDS ORDERED: Hydromorphone 1 mg/ml Ampule IV ONE (17:18)
--- NOTE | 2019-04-04 17:18 | ERPHSYRPT ---
- History of Present Illness Time Seen by Provider: 04/04/19 17:05 Source: patient, family Exam Limitations: no limitations Patient Subjective Stated Complaint: pt here for a migraine, she has headaches often and states her meds at [facility] are not working, she also co vomiting, pt walked in with a water bottle Triage Nursing Assessment: pt alert, walked in, resp easy, skin w/d/p. moves all ext well, she states this is like her normal alcaraz Physician History: 28 y/o white female presents with her typical migraine headache. pt tried her imitrex without help. she has had the pain for 2 to 3 days and has been vomiting. denies head injury Timing/Duration: day(s) ( to 3 ) Head Pain Location: parietal Severity of Pain-Max: moderate Severity of Pain-Current: moderate Recent Head Trauma: no recent headache/trauma, frequent headaches Modifying Factors: Improves With: exposure to light Associated Symptoms: numbness in legs/feet (left side-typical for her. ), sensitive to light, No loss of consciousness Previous symptoms: same symptoms as today Allergies/Adverse Reactions: ketorolac [From Toradol] Allergy (Verified 08/21/18 18:57) morphine Allergy (Verified 08/21/18 18:57) Home Medications: Lorazepam 0.5 mg [Ativan 0.5 MG] 0.5 mg PO DAILY 08/16/18 [History] Baclofen 10 mg DAILY 08/21/18 [History] Oxycodone / APAP 10/325 mg [Oxycodone-Acetaminophen 10-325] 1 tab DAILY [History] SUMAtriptan succinate [Imitrex 50 mg] 50 mg DAILY 04/04/19 [History] Hx Tetanus, Diphtheria Vaccination/Date Given: No Hx Influenza Vaccination/Date Given: Yes Hx Pneumococcal Vaccination/Date Given: No Immunizations Up to Date: Yes - Review of Systems Constitutional: No Symptoms Eyes: Photophobia Ears, Nose, & Throat: No Symptoms Respiratory: No Symptoms Cardiac: No Symptoms Abdominal/Gastrointestinal: Nausea, Vomiting, No Abdominal Pain Genitourinary Symptoms: No Symptoms Musculoskeletal: No Symptoms Skin: No Symptoms Neurological: Headache Psychological: No Symptoms Endocrine: No Symptoms Hematologic/Lymphatic: No Symptoms Immunological/Allergic: No Symptoms All Other Systems: Reviewed and Negative - Past Medical History Pertinent Past Medical History: Yes Neurological History: Migraines, Seizures ENT History: No Pertinent History Cardiac History: No Pertinent History Respiratory History: No Pertinent History Endocrine Medical History: No Pertinent History Musculoskeletal History: Fractures GI Medical History: No Pertinent History History: No Pertinent History Psycho-Social History: No Pertinent History Female Reproductive Disorders: Other Other Medical History: left arm fracture , right lumpectomy, - Past Surgical History Past Surgical History: Yes Neuro Surgical History: No Pertinent History Cardiac: No Pertinent History Respiratory: No Pertinent History Gastrointestinal: Appendectomy, Cholecystectomy Genitourinary: No Pertinent History Musculoskeletal: Orthopedic Surgery Female Surgical History: Lumpectomy Other Surgical History: surgery to left arm after fracture - Social History Smoking Status: Never smoker Exposure to second hand smoke: No Drug Use: none Patient Lives Alone: No - Female History Hx Last Menstrual Period: last week Hx Now: No - Nursing Vital Signs Nursing Vital Signs: Initial Vital Signs Temperature 97 F 04/04/19 16:44 Pulse Rate 76 04/04/19 16:44 Respiratory Rate 16 04/04/19 16:44 Blood Pressure 127/80 04/04/19 16:44 O2 Sat by Pulse Oximetry 99 04/04/19 16:44 Pain Scale Pain Intensity 8 - Physical Exam General Appearance: mild distress, alert, anxiety Eye Exam: PERRL/EOMI, eyes nml inspection Ears, Nose, Throat Exam: normal ENT inspection, moist mucous membranes Neck Exam: normal inspection, non-tender, supple, full range of motion Respiratory Exam: normal breath sounds, lungs clear, airway intact, No chest tenderness, No respiratory distress Gastrointestinal/Abdominal Exam: No tenderness Extremity Exam: normal inspection, normal range of motion, pelvis stable 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, 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, 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 Exam: normal hearing, 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, PERRL Coordination/Gait Exam: normal finger to nose, normal gait, normal cerebellar function Motor/Sensory Exam: no motor deficit, no sensory deficit, no pronator drift Skin Exam: normal color, warm, dry Lymphatic Exam: No adenopathy SpO2 Interpretation: normal SpO2: 99 O2 Delivery: Room Air Ordered Tests: Active Orders 24 hr Category Date Time Status IV Insertion STAT Care 04/04/19 17:18 Active Medication Summary Generic Name Dose Route Start Last Admin Trade Name Freq PRN Reason Stop Dose Admin Sodium Chloride 500 mls @ 500 mls/hr 04/04/19 17:20 Sodium Chloride 0.9% 500 Ml IV 04/04/19 18:19 .Q1H ONE Discontinued Medications Generic Name Dose Route Start Last Admin Trade Name Greg PRN Reason Stop Dose Admin Hydromorphone HCl 1 mg 04/04/19 17:18 Hydromorphone 1 Mg/Ml Ampule IV 04/04/19 17:19 STAT ONE Promethazine HCl 25 mg 04/04/19 17:18 Phenergan 25 Mg Inj IM 04/04/19 17:19 STAT ONE - Progress Progress: improved Air Movement: good Blood Culture(s) Obtained: No Antibiotics given: No Counseled pt/family regarding: diagnosis, need for follow-up - Departure Departure Disposition: Home Clinical Impression: Migraine headache Condition: Stable Critical Care Time: No Referrals: LUZ ELENA ZAMARRIPA MD [Primary Care Provider] - Additional Instructions: take your medications as prescribed. follow up with your neurologist on SaturdayApril 06 for further management
[2019-04-04] MEDS ORDERED: Phenergan 25 MG INJ ONE (17:29)
[2019-04-04] MEDS ORDERED: Hydromorphone 1 mg/ml Ampule ONE (17:30)
[2019-04-04] MEDS ORDERED: Sodium Chloride 0.9% 500 ML 0 ML IV ONE (17:30)
[2019-04-04] MEDS: Sodium Chloride 0.9% 500 ML 500 ML IV ONE ×2 (17:35→19:04)
[2019-04-04 19:04] VITALS: PULSE 68
== END 2019-04-04 19:27 | disposition home or self-care (01) ==
LOC: ED 16:38
DX: G43.909 Migraine, unspecified, not intractable, without status migrainosus (principal)
CPT/HCPCS: 96372; 96374; 99284; J1170; J2550

== ENCOUNTER 2019-04-13 14:43 | Emergency (ER) | payer OTHER ==
[2019-04-13 14:54] VITALS: PULSE 85
[2019-04-13] MEDS ORDERED: BENADRYL 50 MG/ML IM ONE (15:03)
[2019-04-13] MEDS ORDERED: Nubain 10 MG/ML IM ONE ×2 (15:03→17:17)
--- NOTE | 2019-04-13 15:09 | ERPHSYRPT ---
- History of Present Illness Time Seen by Provider: 04/13/19 14:56 Source: patient Exam Limitations: no limitations Patient Subjective Stated Complaint: pt here for a migraine headache for a week now off and on, pt has frequent migraines,she is also vomiting, she has had her migraine meds at home Triage Nursing Assessment: pt alert, walked in, resp easy, skin w/d/p, vomited x1. moves all ext well Physician History: 28-year-old white female with history of migraines seizures, His arrives with the complaint of a headache for a week photophobia nausea vomiting no fevers. Patient has a history of chronic migraines. Patient states she has a headache specialist in [place]. She apparently sees a pain specialist in [place] and recieves regular prescription for oxycodone. Past medical history includes migraines, seizures, left arm fracture, lumpectomy. Past surgical history includes appendectomy, cholecystectomy, lumpectomy. Timing/Duration: week(s) (one week) Severity: moderate Associated Symptoms: nausea, vomiting, No abdominal pain, No shortness of breath , No heartburn, No diaphoresis, No cough, No chills, No chest pain, No fever, No headaches, No loss of appetite, No malaise, No rash, No syncope, No seizure, No weakness Allergies/Adverse Reactions: ketorolac [From Toradol] Allergy (Verified 04/13/19 14:54) morphine Allergy (Verified 04/13/19 14:54) Home Medications: Lorazepam 0.5 mg [Ativan 0.5 MG] 0.5 mg PO DAILY 08/16/18 [History] Baclofen 10 mg DAILY 08/21/18 [History] Oxycodone / APAP 10/325 mg [Oxycodone-Acetaminophen 10-325] 1 tab DAILY [History] SUMAtriptan succinate [Imitrex 50 mg] 50 mg DAILY 04/04/19 [History] Hx Tetanus, Diphtheria Vaccination/Date Given: No Hx Influenza Vaccination/Date Given: Yes Hx Pneumococcal Vaccination/Date Given: No Immunizations Up to Date: Yes - Review of Systems Constitutional: No Fever, No Chills Eyes: No Symptoms Ears, Nose, & Throat: No Symptoms Respiratory: No Cough, No Dyspnea Cardiac: No Chest Pain, No Edema, No Syncope Abdominal/Gastrointestinal: No Abdominal Pain, No Nausea, No Vomiting, No Diarrhea Genitourinary Symptoms: No Dysuria Musculoskeletal: No Back Pain, No Neck Pain Skin: No Rash Neurological: Headache Psychological: No Symptoms Endocrine: No Symptoms All Other Systems: Reviewed and Negative - Past Medical History Pertinent Past Medical History: Yes Neurological History: Migraines, Seizures ENT History: No Pertinent History Cardiac History: No Pertinent History Respiratory History: No Pertinent History Endocrine Medical History: No Pertinent History Musculoskeletal History: Fractures GI Medical History: No Pertinent History History: No Pertinent History Psycho-Social History: No Pertinent History Female Reproductive Disorders: Other Other Medical History: left arm fracture , right lumpectomy, - Past Surgical History Past Surgical History: Yes Neuro Surgical History: No Pertinent History Cardiac: No Pertinent History Respiratory: No Pertinent History Gastrointestinal: Appendectomy, Cholecystectomy Genitourinary: No Pertinent History Musculoskeletal: Orthopedic Surgery Female Surgical History: Lumpectomy Other Surgical History: surgery to left arm after fracture - Social History Smoking Status: Never smoker Exposure to second hand smoke: No Drug Use: none Patient Lives Alone: No - Female History Hx Last Menstrual Period: 3 weeks ago Hx Now: No - Nursing Vital Signs Nursing Vital Signs: Initial Vital Signs Temperature 98.2 F 04/13/19 14:48 Pulse Rate 85 04/13/19 14:48 Respiratory Rate 18 04/13/19 14:48 Blood Pressure 131/87 04/13/19 14:48 O2 Sat by Pulse Oximetry 100 04/13/19 14:48 Pain Scale Pain Intensity 7 - Physical Exam General Appearance: no apparent distress, alert Eye Exam: PERRL/EOMI, eyes nml inspection Ears, Nose, Throat Exam: normal ENT inspection, TMs normal, pharynx normal, moist mucous membranes Neck Exam: normal inspection, non-tender, supple, full range of motion Respiratory Exam: normal breath sounds, lungs clear, No respiratory distress Cardiovascular Exam: regular rate/rhythm, normal heart sounds, normal peripheral pulses, capillary refill <2 sec Gastrointestinal/Abdomen Exam: soft, normal bowel sounds, No tenderness, No mass Back Exam: normal inspection, normal range of motion, No CVA tenderness, No vertebral tenderness Extremity Exam: normal inspection, normal range of motion, pelvis stable Neurologic Exam: alert, 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, 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, 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, normal mood/affect, nml cerebellar function, nml station & gait, sensation nml, No motor deficits Skin Exam: normal color, warm, dry, No rash Lymphatic Exam: No adenopathy SpO2 Interpretation: normal SpO2: 100 Ordered Tests: Medication Summary Discontinued Medications Generic Name Dose Route Start Last Admin Trade Name Freq PRN Reason Stop Dose Admin Diphenhydramine HCl 50 mg 04/13/19 15:03 04/13/19 15:30 Benadryl 50 Mg/Ml IM 04/13/19 15:04 50 mg STAT ONE Administration Diphenhydramine HCl Confirm 04/13/19 15:27 Benadryl 50 Mg/Ml Administered 04/13/19 15:28 Dose 50 mg .ROUTE .STK-MED ONE Nalbuphine HCl 10 mg 04/13/19 15:03 04/13/19 15:31 Nubain 10 Mg/Ml IM 04/13/19 15:04 10 mg STAT ONE Administration Nalbuphine HCl Confirm 04/13/19 15:28 Nubain 10 Mg/Ml Administered 04/13/19 15:29 Dose 10 mg .ROUTE .STK-MED ONE Nalbuphine HCl 10 mg 04/13/19 17:17 04/13/19 17:26 Nubain 10 Mg/Ml IM 04/13/19 17:18 10 mg STAT ONE Administration Nalbuphine HCl Confirm 04/13/19 17:25 Nubain 10 Mg/Ml Administered 04/13/19 17:26 Dose 10 mg .ROUTE .STK-MED ONE Promethazine HCl 25 mg 04/13/19 16:39 04/13/19 16:44 Phenergan 25 Mg Inj IM 04/13/19 16:40 25 mg STAT ONE Administration Promethazine HCl Confirm 04/13/19 16:43 Phenergan 25 Mg Inj Administered 04/13/19 16:44 Dose 25 mg .ROUTE .STK-MED ONE - Progress Progress: improved Progress Note: 04/13/19 17:22 Patient has been given Nubain 10 mg, Benadryl 50 mg, Phenergan 25 mg IM she is improved but still states she has a headache. Will give patient 10 more milligrams of Nubain her pressure is stable. Will plan on discharging patient. 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 - Departure Departure Disposition: Home Clinical Impression: Migraine headache Qualifiers: Migraine type: unspecified Status migrainosus presence: without status migrainosus Intractability: not intractable Qualified Code(s): G43.909 - Migraine, unspecified, not intractable, without status migrainosus Condition: Fair Critical Care Time: No Referrals: LUZ ELENA ZAMARRIPA MD [Primary Care Provider] - Additional Instructions: Return home. Rest in a dark quiet room. Followup with your family doctor, pain fire controlman, or headache specialist. Return for acute distress or for severe symptoms.
[2019-04-13] MEDS ORDERED: BENADRYL 50 MG/ML ONE (15:27)
[2019-04-13] MEDS ORDERED: Nubain 10 MG/ML ONE ×2 (15:28→17:25)
[2019-04-13 16:38] VITALS: BP 146/68
[2019-04-13] MEDS ORDERED: Phenergan 25 MG INJ IM ONE (16:39)
[2019-04-13] MEDS ORDERED: Phenergan 25 MG INJ ONE (16:43)
[2019-04-13 17:23] VITALS: O2SAT 100
== END 2019-04-13 17:59 | disposition home or self-care (01) ==
LOC: ED 14:43
DX: G43.909 Migraine, unspecified, not intractable, without status migrainosus (principal)
CPT/HCPCS: 96372; 99284; J1200; J2300; J2550

== ENCOUNTER 2019-05-06 15:38 | Emergency (ER) | payer OTHER ==
[2019-05-06] MEDS ORDERED: Transderm Scop 1.5MG Patch TOP ONE (16:44)
[2019-05-06] MEDS ORDERED: Dilaudid 4 MG Tab PO STA (17:22)
--- NOTE | 2019-05-06 18:07 | ERPHSYRPT ---
- History of Present Illness Source: patient Exam Limitations: no limitations Patient Subjective Stated Complaint: pt states day 4 of headache. took a phenergan suppository yesterday and zofran but did not help. pt c/o throbbing pain behind right eye causing visual disturbance in left eye. also c/o left side numbness occassionally. hx migraines sees Dr Handy in [facility] Triage Nursing Assessment: pt ambulated to room, has emesis bag with clear secretions. pt wearing eyeglasses d/t light ( light off after assessment) resp easy. c/o throbbing pain 9/10 behind right eye. skin pink warm and dry. decrease appetite x 4 days d/t nausea Physician History: Pt is a 28 y/o female with a h/o migraines, that presented to the ED with a migraine, with no relief. Pt states, she has Percocet at home, but she can't take them, because she is vomiting all day. Timing/Duration: day(s) Quality: pressure, stabbing, throbbing Head Pain Location: frontal Severity of Pain-Max: severe Severity of Pain-Current: severe Recent Head Trauma: no recent headache/trauma, frequent headaches, chronic headaches Modifying Factors: Improves With: exposure to light, immobilization, medication , rest, noise Associated Symptoms: sensitive to light Previous symptoms: same symptoms as today Allergies/Adverse Reactions: ketorolac [From Toradol] Allergy (Verified 04/13/19 14:54) morphine Allergy (Verified 04/13/19 14:54) Home Medications: Baclofen 10 mg PO DAILY PRN PRN 08/21/18 [History] Oxycodone / APAP 10/325 mg [Oxycodone-Acetaminophen 10-325] 1 tab PO Q6- 8HPRN PRN 08/21/18 [History] SUMAtriptan succinate [Imitrex 50 mg] 50 mg UD PRN 04/04/19 [History] Fremanezumab-Vfrm [Ajovy] 225 mg IJ UD 05/06/19 [History] Hx Tetanus, Diphtheria Vaccination/Date Given: Yes Hx Influenza Vaccination/Date Given: No Hx Pneumococcal Vaccination/Date Given: No Immunizations Up to Date: Yes - Review of Systems Constitutional: Malaise Eyes: Photophobia Ears, Nose, & Throat: No Symptoms Respiratory: No Cough, No Dyspnea Cardiac: No Chest Pain, No Edema, No Syncope Abdominal/Gastrointestinal: Nausea, Vomiting Genitourinary Symptoms: No Dysuria Musculoskeletal: No Back Pain, No Neck Pain Neurological: Headache - Past Medical History Pertinent Past Medical History: Yes Neurological History: Migraines ENT History: No Pertinent History Cardiac History: No Pertinent History Respiratory History: No Pertinent History Endocrine Medical History: No Pertinent History Musculoskeletal History: No Pertinent History GI Medical History: No Pertinent History History: No Pertinent History Psycho-Social History: No Pertinent History Female Reproductive Disorders: No Pertinent History Other Medical History: left arm fracture , right lumpectomy, - Past Surgical History Past Surgical History: Yes Neuro Surgical History: No Pertinent History Cardiac: No Pertinent History Respiratory: No Pertinent History Gastrointestinal: Cholecystectomy Genitourinary: No Pertinent History Musculoskeletal: Orthopedic Surgery Female Surgical History: No Pertinent History Other Surgical History: lumpectomy right breast - Social History Smoking Status: Never smoker Exposure to second hand smoke: No Drug Use: none Patient Lives Alone: No - Female History Hx Last Menstrual Period: 1 weeks ago Hx Now: No - Nursing Vital Signs Nursing Vital Signs: Initial Vital Signs Temperature 99.1 F 05/06/19 15:38 Pulse Rate 76 05/06/19 15:38 Respiratory Rate 16 05/06/19 15:38 Blood Pressure 119/89 05/06/19 15:38 O2 Sat by Pulse Oximetry 100 05/06/19 15:38 Pain Scale Pain Intensity 9 - Physical Exam General Appearance: mild distress Eye Exam: PERRL/EOMI Ears, Nose, Throat Exam: normal ENT inspection, moist mucous membranes Neck Exam: normal inspection, supple, full range of motion, No meningismus Respiratory Exam: normal breath sounds, lungs clear Cardiovascular Exam: regular rate/rhythm, normal heart sounds Gastrointestinal/Abdominal Exam: soft, No tenderness, No distention Back Exam: normal inspection, normal range of motion Extremity Exam: normal inspection 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, 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, 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 Exam: normal hearing, 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, PERRL Coordination/Gait Exam: normal cerebellar function Motor/Sensory Exam: no motor deficit, no sensory deficit SpO2: 100 - Course Nursing assessment & vital signs reviewed: Yes Ordered Tests: Medication Summary Discontinued Medications Generic Name Dose Route Start Last Admin Trade Name Freq PRN Reason Stop Dose Admin Hydromorphone HCl 4 mg 05/06/19 17:22 05/06/19 17:36 Dilaudid 4 Mg Tab PO 05/06/19 17:23 4 mg ONCE STA Administration Scopolamine HBr 1.5 mg 05/06/19 16:44 05/06/19 16:59 Transderm Scop 1.5mg Patch TOP 05/06/19 16:45 1.5 mg STAT ONE Administration - Progress Progress: improved Air Movement: good Progress Note: 05/06/19 18:06 Pt was seen and examined. I ordered Scopolamine patch for her, and gave her Dilaudid PO after the patch. Pt improved, did not vomit, and felt better. She is d/c to home, and should f/u with her neurologist. Blood Culture(s) Obtained: No Antibiotics given: No Will see patient in: office Counseled pt/family regarding: need for follow-up - Departure Departure Disposition: Home Clinical Impression: Migraine Condition: Stable Critical Care Time: No Referrals: LUZ ELENA ZAMARRIPA MD [Primary Care Provider] - Additional Instructions: F/U with PCP and neurologist. You can leave the Scopolamine patch for 72 hours to give you relief from nausea and vomiting.
[2019-05-06 18:24] VITALS: BP 95/60; PULSE 76; O2SAT 98
== END 2019-05-06 18:27 | disposition home or self-care (01) ==
LOC: ED 15:38
DX: G43.909 Migraine, unspecified, not intractable, without status migrainosus (principal)
CPT/HCPCS: 99283; A9270-GY

== ENCOUNTER 2020-06-21 20:29 | Emergency (ER) | payer OTHER ==
[2020-06-21] MEDS ORDERED: Compazine 10 MG/2 ML IV ONE (21:08)
[2020-06-21] MEDS ORDERED: OFIRMEV IV STA (21:10)
[2020-06-21 21:49] LABS: Appearance TURBID (CLEAR); Bacteria MODERATE /HPF (NEGATIVE); Bilirubin NEGATIVE (NEGATIVE); Blood SMALL Ery/ul (0-5); Epithelial Cells PACKED /HPF (FEW); Glucose NEGATIVE (NEGATIVE); Ketones NEGATIVE (NEGATIVE); Leukocyte Esterase MODERATE (NEGATIVE); Mucus MANY /HPF (NEGATIVE); Nitrite NEGATIVE (NEGATIVE); Protein,Urine Dip 100 (Negative); Specific Gravity 1.026 (1.005-1.025); Urobilinogen NEGATIVE mg/dL (0-1); WBC 51-100 /HPF (0-5)
[2020-06-21] MEDS ORDERED: Compazine 10 MG/2 ML ONE (22:05)
--- NOTE | 2020-06-21 22:28 | ERPHSYRPT ---
- History of Present Illness Time Seen by Provider: 06/21/20 21:00 Source: patient Patient Subjective Stated Complaint: pt states she has had a migraine for 4 days. states she has pain behaind her rt eye, blurry vision in lt eye and some numbness on the lt side of her face. pt states is her usual migraine. has had nausea and vomiting with migraine. Triage Nursing Assessment: pt alert and oriented, answers questions approp. pt ambulatory with steady gait noted. respirations nonlabored with lungs cta. pupils equal and reactive. bilat upper and lower ext strength equal and wnl. Physician History: Patient is a 29-year-old female presents to our ED with complaints of a migraine. Patient has a history of migraine headaches. Patient is experiencing a migraine that is typical of her usual migraine. Headache started approximately 4 days ago. Headache has been constant. Patient describes the pain sensation behind her right eye. No associated trauma. Patient admits to feeling somewhat nauseous. Her vision at that the involved eye is somewhat blurred. However patient reiterates that this is typical of her usual migraine. No other focal or lateralizing symptoms. No neck pain. No photophobia. Patient has no meningeal signs. Patient is otherwise healthy. She voices no other complaints or concerns at this time. Timing/Duration: day(s) (4 days.) Quality: aching Head Pain Location: frontal Severity of Pain-Max: moderate Severity of Pain-Current: moderate Recent Head Trauma: no recent headache/trauma, chronic headaches Modifying Factors: Improves With: exposure to light, noise Associated Symptoms: nausea/vomiting, sensitive to light, visual disturbance, No dizziness, No loss of consciousness, No stiff neck, No trouble walking Previous symptoms: same symptoms as today Allergies/Adverse Reactions: ketorolac [From Toradol] Allergy (Mild, Verified 06/21/20 21:00) Rash morphine Allergy (Mild, Verified 06/21/20 21:00) Rash haloperidol [From Haldol] Adverse Reaction (Mild, Verified 06/21/20 22:16) metoclopramide [From Reglan] Adverse Reaction (Mild, Verified 06/21/20 22:16) prochlorperazine [From Compazine] Adverse Reaction (Mild, Verified 06/21/20 22:16) Home Medications: Baclofen 10 mg PO DAILY PRN PRN 08/21/18 [History] SUMAtriptan succinate [Imitrex 50 mg] 50 mg UD PRN 04/04/19 [History] Fremanezumab-Vfrm [Ajovy] 225 mg IJ UD 05/06/19 [History] Hydrocodone/APAP 5-325 Tab^^^ [[place] 5-325 Tablet^^^] 1 tab PO Q6HPRN PRN MDD 6 06/21/20 [History] Ondansetron ODT 4 MG [Zofran Odt 4 mg] 4 mg PO Q6H PRN PRN 06/21/20 [Hi story] Hx Tetanus, Diphtheria Vaccination/Date Given: Yes Hx Influenza Vaccination/Date Given: No Hx Pneumococcal Vaccination/Date Given: No Immunizations Up to Date: Yes Travel Risk - International Travel Have you traveled outside of the country in past 3 weeks: No - Coronavirus Screening Are you exhibiting any of the following symptoms?: No Close contact with a COVID-19 positive Pt in past 14-21 Days: No - Review of Systems Constitutional: No Symptoms, No Fever, No Chills Eyes: No Symptoms Ears, Nose, & Throat: No Symptoms Respiratory: No Symptoms, No Cough, No Dyspnea Cardiac: No Symptoms, No Chest Pain, No Edema, No Syncope Abdominal/Gastrointestinal: No Symptoms, No Abdominal Pain, No Nausea, No Vomiting, No Diarrhea Genitourinary Symptoms: No Symptoms, No Dysuria Musculoskeletal: No Symptoms, No Back Pain, No Neck Pain Skin: No Symptoms, No Rash Neurological: No Symptoms, No Dizziness, No Focal Weakness, No Sensory Changes Psychological: No Symptoms Endocrine: No Symptoms Hematologic/Lymphatic: No Symptoms Immunological/Allergic: No Symptoms All Other Systems: Reviewed and Negative - Past Medical History Pertinent Past Medical History: Yes Neurological History: Migraines ENT History: No Pertinent History Cardiac History: No Pertinent History Respiratory History: No Pertinent History Endocrine Medical History: No Pertinent History Musculoskeletal History: No Pertinent History GI Medical History: No Pertinent History History: No Pertinent History Psycho-Social History: No Pertinent History Female Reproductive Disorders: No Pertinent History Other Medical History: left arm fracture , right lumpectomy, - Past Surgical History Past Surgical History: Yes Neuro Surgical History: No Pertinent History Cardiac: No Pertinent History Respiratory: No Pertinent History Gastrointestinal: Cholecystectomy Genitourinary: No Pertinent History Musculoskeletal: Orthopedic Surgery Female Surgical History: No Pertinent History Other Surgical History: lumpectomy right breast - Social History Smoking Status: Never smoker Exposure to second hand smoke: No Drug Use: none Patient Lives Alone: No - Female History Hx Last Menstrual Period: 06/25/20 Hx Now: Yes - Nursing Vital Signs Nursing Vital Signs: Initial Vital Signs Temperature 98.8 F 06/21/20 20:49 Pulse Rate 104 H 06/21/20 20:49 Respiratory Rate 16 06/21/20 20:49 Blood Pressure 122/86 06/21/20 20:49 O2 Sat by Pulse Oximetry 98 06/21/20 20:49 Pain Scale Pain Intensity 8 - Physical Exam General Appearance: no apparent distress Eye Exam: PERRL/EOMI Ears, Nose, Throat Exam: normal ENT inspection, moist mucous membranes Neck Exam: normal inspection, supple, full range of motion, No meningismus Respiratory Exam: normal breath sounds, lungs clear Cardiovascular Exam: regular rate/rhythm, normal heart sounds Gastrointestinal/Abdominal Exam: soft, No tenderness, No distention Back Exam: normal inspection, normal range of motion 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, 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, 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 Exam: normal hearing, 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, PERRL, tongue midline, No abnormal eye position, No abnormal gag reflex, No abnormal pupil position, No ab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, No facial asymmetry, No facial droop, No facial weakness, No gaze palsy, No hearing deficit (R), No hearing deficit (L), No tongue deviation to R, No tongue deviation to L Coordination/Gait Exam: normal cerebellar function Motor/Sensory Exam: no motor deficit, no sensory deficit, No no pronator drift Skin Exam: normal color, warm, dry, No rash Lymphatic Exam: No adenopathy SpO2 Interpretation: normal SpO2: 98 O2 Delivery: Room Air - Course Nursing assessment & vital signs reviewed: Yes Ordered Tests: Active Orders 24 hr Category Date Time Status IV Insertion STAT Care 06/21/20 21:08 Active CULTURE,URINE Stat Lab 06/21/20 21:30 Received HCG QUALITATIVE,SERUM Stat Lab 06/21/20 Completed HCG,QUALITATIVE URINE Stat Lab 06/21/20 Uncollected UA W/RFX UR CULTURE Stat Lab 06/21/20 21:30 Completed Medication Summary Generic Name Dose Route Start Last Admin Trade Name Freq PRN Reason Stop Dose Admin Acetaminophen 1,000 mg 06/21/20 21:10 Ofirmev IV 06/21/20 21:11 ONCE STA Discontinued Medications Generic Name Dose Route Start Last Admin Trade Name Greg PRN Reason Stop Dose Admin Hydromorphone HCl 1 mg 06/21/20 23:02 06/21/20 23:05 Hydromorphone 1 Mg/Ml Ampule IV 06/21/20 23:03 1 mg STAT ONE Administration Hydromorphone HCl Confirm 06/21/20 23:04 Hydromorphone 1 Mg/Ml Ampule Administered 06/21/20 23:05 Dose 1 mg .ROUTE .STK-MED ONE Hydromorphone HCl 0.5 mg 06/21/20 23:41 Hydromorphone 1 Mg/Ml Ampule IV 06/21/20 23:42 STAT ONE Sodium Chloride 1,000 mls @ 999 mls/hr 06/21/20 22:29 06/21/20 22:33 Sodium Chloride 0.9% 1000 Ml IV 06/21/20 23:29 999 mls/hr .Q1H1M STA Administration Sodium Chloride Confirm 06/21/20 22:31 Sodium Chloride 0.9% 1000 Ml Administered 06/21/20 22:32 Dose 1,000 mls @ ud .ROUTE .STK-MED ONE Ceftriaxone Sodium/Dextrose 1 g in 50 mls @ 100 mls/hr 06/21/20 23:12 06/21/20 23:38 Rocephin 1 Gm-D5w 50 Ml Bag IV 06/21/20 23:41 100 ml/hr STAT STA 100 mls/hr Administration Ceftriaxone Sodium/Dextrose Confirm 06/21/20 23:11 Rocephin 1 Gm-D5w 50 Ml Bag Administered 06/21/20 23:12 Dose 1 g in 50 mls @ ud IV .STK-MED ONE Prochlorperazine Edisylate 10 mg 06/21/20 21:08 06/21/20 22:42 Compazine 10 Mg/2 Ml IV 06/21/20 21:09 Not Given STAT ONE Prochlorperazine Edisylate Confirm 06/21/20 22:05 Compazine 10 Mg/2 Ml Administered 06/21/20 22:06 Dose 10 mg .ROUTE .STK-MED ONE Promethazine HCl 25 mg 06/21/20 22:29 06/21/20 22:40 Phenergan 25 Mg Inj IM 06/21/20 22:30 25 mg STAT ONE Administration Promethazine HCl Confirm 06/21/20 22:31 Phenergan 25 Mg Inj Administered 06/21/20 22:32 Dose 25 mg .ROUTE .STK-MED ONE Lab/Rad Data: Laboratory Results 06/21/20 06/21/20 Range/Units Unknown 21:30 Serum , Qual NEGATIVE (Negative) Urine Color LINH (YELLOW) Urine Appearance TURBID (CLEAR) Urine pH 7.0 (5-6) Ur Specific [place] 1.026 (1.005-1.025) Urine Protein 100 (Negative) Urine Ketones NEGATIVE (NEGATIVE) Urine Blood SMALL (0-5) Marck/ul Urine Nitrite NEGATIVE (NEGATIVE) Urine Bilirubin NEGATIVE (NEGATIVE) Urine Urobilinogen NEGATIVE (0-1) mg/dL Ur Leukocyte Esterase MODERATE (NEGATIVE) Urine WBC (Auto) 51-100 (0-5) /HPF Urine RBC (Auto) 6-10 (0-2) /HPF U Epithel Cells (Auto) PACKED (FEW) /HPF Urine Bacteria (Auto) MODERATE (NEGATIVE) /HPF Calcium Oxalate Crystal 11-25 (NEGATIVE) /HPF Urine Mucus (Auto) MANY (NEGATIVE) /HPF Urine Culture Reflexed YES (NO) Urine Glucose NEGATIVE (NEGATIVE) mg/dL - Progress Progress: improved Air Movement: good Progress Note: 06/21/20 23:44 Patient reassessed. Repeat neuro exam within normal limits. Headache essentially resolved. Patient states she is ready for discharge. Patient does have a UTI. Antibiotic prescription forwarded the patient's pharmacy. Patient agrees to follow-up with her primary care doctor within 48 hours for reevaluation. Patient voices no other complaints at this time. Blood Culture(s) Obtained: No Antibiotics given: No Counseled pt/family regarding: diagnosis, need for follow-up - Departure Departure Disposition: Home Clinical Impression: Migraine, UTI (urinary tract infection) Condition: Stable Critical Care Time: No Referrals: LUZ ELENA ZAMARRIPA MD [Primary Care Provider] - Additional Instructions: Discharge/Care Plan FADY LEI was seen on 06/21/20 in the Emergency Room. The patient was counseled regarding Diagnosis,Lab results, Imaging studies, need for follow up and when to return to the Emergency Room. Prescriptions given: Discharge Note I have spoken with the patient and/or caregivers. I have explained the patient's condition, diagnosis and treatment plan based on the information available to me at this time. I have answered the patient's and/or caregiver's questions and addressed any concerns. The patient and/or caregivers have as good understanding of the patient's diagnosis, condition and treatment plan as can be expected at this point. The vital signs have been stable. The patient's condition is stable and appropriate for discharge from the emergency department. The patient will pursue further outpatient evaluation with the primary care physician or other designated or consulting physician as outlined in the [facility] instructions. The patient and/or caregivers are agreeable to this plan of care and follow-up instructions have been explained in detail. The patient and/or caregivers have received these instruction. The patient/and or caregivers are aware that any significant change in condition or worsening of symptoms should prompt an immediate return to this or the closest emergency department or call 911. Prescriptions: Nitrofurantoin Macro 100 mg [Macrobid 100MG Capsule] 100 mg PO BID 7 Days #14 capsule
[2020-06-21] MEDS ORDERED: Phenergan 25 MG INJ IM ONE (22:29)
[2020-06-21] MEDS ORDERED: Sodium Chloride 0.9% 1000 ML 1,000 ML IV STA (22:29)
[2020-06-21] MEDS ORDERED: Phenergan 25 MG INJ ONE (22:31)
[2020-06-21] MEDS ORDERED: Sodium Chloride 0.9% 1000 ML 1,000 ML ONE (22:31)
[2020-06-21] MEDS ORDERED: Hydromorphone 1 mg/ml Ampule IV ONE ×2 (23:02→23:41)
[2020-06-21] MEDS ORDERED: Hydromorphone 1 mg/ml Ampule ONE ×2 (23:04→23:50)
[2020-06-21] MEDS ORDERED: ROCEPHIN 1 Gm-D5w 50 ml Bag** 1 G/50 ML IVPB IV ONE (23:11)
[2020-06-21] MEDS ORDERED: ROCEPHIN 1 Gm-D5w 50 ml Bag** 1 G/50 ML IVPB IV STA (23:12)
[2020-06-22 00:23] VITALS: BP 117/73; PULSE 81; O2SAT 97
== END 2020-06-22 00:42 | disposition home or self-care (01) ==
LOC: ED 20:29
DX: G43.909 Migraine, unspecified, not intractable, without status migrainosus (principal); N39.0 Urinary tract infection, site not specified
CPT/HCPCS: 36000; 36415; 81001; 81025; 87086; 96360; 96365; 96372; 96374; 96376; 99284; J0696; J1170; J2550

== ENCOUNTER 2020-06-22 17:59 | Emergency (ER) | payer OTHER ==
[2020-06-22] MEDS ORDERED: BACTRIM DS TABLET PO STA (18:28)
[2020-06-22] MEDS ORDERED: Norco 10/325 MG Tablet PO ONE (18:29)
[2020-06-22] MEDS ORDERED: BACTRIM DS TABLET PO ONE (18:32)
[2020-06-22] MEDS ORDERED: Norco 10/325 MG Tablet ONE (18:32)
--- NOTE | 2020-06-22 18:33 | ERPHSYRPT ---
- History of Present Illness Time Seen by Provider: 06/22/20 18:18 Source: patient Exam Limitations: no limitations Patient Subjective Stated Complaint: PT states "I was here last night for a migraine and UTI. I was given an antibiotic and I am taking it but today my lower back really hurts and there was blood in my urine." Triage Nursing Assessment: Pt presented alert and oriented X 3, skin pwd Pt ambulates with an upright steady gait, able to speak in clear full sentences. Pt in no apparent respiratory distress. Physician History: 29 years old female with history of migraines, recurrent UTIs who was evaluated last night for migraines, was found to have UTI, given IV Rocephin and started on Macrobid. Patient reports increasing burning urination with pressure/fullness suprapubically and mild to moderate low back pain. Patient reports noticing some blood change in urine which scared her. She does not have any upper abdominal pain, no fever or chills reported. No vomiting but has nausea at times. Patient reports having multiple UTIs in the past and Bactrim really helps her. patient reports she is allergic to multiple medications and needs a shot of Dilaudid that really helps her. Timing/Duration: yesterday, intermittent, gradual onset, worse Activites at Onset: rest Quality: burning, fullness, pressure Onset Location: suprapubic, urethral, low back pain Pain Radiation: none Severity of Pain-Max: moderate Severity of Pain-Current: moderate Prior abdominal problems: UTI Modifying Factors: Improves With: urinating Associated Symptoms: dysuria, urinary frequency, No fever, No chills, No vaginal discharge Allergies/Adverse Reactions: ketorolac [From Toradol] Allergy (Mild, Verified 06/21/20 21:00) Rash morphine Allergy (Mild, Verified 06/21/20 21:00) Rash haloperidol [From Haldol] Adverse Reaction (Mild, Verified 06/21/20 22:16) metoclopramide [From Reglan] Adverse Reaction (Mild, Verified 06/21/20 22:16) prochlorperazine [From Compazine] Adverse Reaction (Mild, Verified 06/21/20 22:16) Home Medications: Baclofen 10 mg PO DAILY PRN PRN 08/21/18 [History] SUMAtriptan succinate [Imitrex 50 mg] 50 mg UD PRN 04/04/19 [History] Fremanezumab-Vfrm [Ajovy] 225 mg IJ UD 05/06/19 [History] Hydrocodone/APAP 5-325 Tab^^^ [[place] 5-325 Tablet^^^] 1 tab PO Q6HPRN PRN MDD 6 06/21/20 [History] Ondansetron ODT 4 MG [Zofran Odt 4 mg] 4 mg PO Q6H PRN PRN 06/21/20 [History] Hx Tetanus, Diphtheria Vaccination/Date Given: Yes Hx Influenza Vaccination/Date Given: No Hx Pneumococcal Vaccination/Date Given: No Travel Risk - International Travel Have you traveled outside of the country in past 3 weeks: No - Coronavirus Screening Are you exhibiting any of the following symptoms?: No Close contact with a COVID-19 positive Pt in past 14-21 Days: No - Review of Systems Constitutional: No Symptoms Eyes: No Symptoms Ears, Nose, & Throat: No Symptoms Respiratory: No Symptoms Cardiac: No Symptoms Genitourinary Symptoms: Dysuria, Frequency, Hematuria, No Incontinence, No Flank Pain, No Musculoskeletal: Back Pain Skin: No Symptoms Neurological: No Symptoms Psychological: No Symptoms Endocrine: No Symptoms Hematologic/Lymphatic: No Symptoms Immunological/Allergic: No Symptoms - Past Medical History Pertinent Past Medical History: Yes Neurological History: Migraines ENT History: No Pertinent History Cardiac History: No Pertinent History Respiratory History: No Pertinent History Endocrine Medical History: No Pertinent History Musculoskeletal History: No Pertinent History GI Medical History: No Pertinent History History: No Pertinent History Psycho-Social History: No Pertinent History Female Reproductive Disorders: No Pertinent History Other Medical History: left arm fracture , right lumpectomy, - Past Surgical History Past Surgical History: Yes Neuro Surgical History: No Pertinent History Cardiac: No Pertinent History Respiratory: No Pertinent History Gastrointestinal: Cholecystectomy Genitourinary: No Pertinent History Musculoskeletal: Orthopedic Surgery Female Surgical History: No Pertinent History Other Surgical History: lumpectomy right breast - Social History Smoking Status: Never smoker Exposure to second hand smoke: No Drug Use: none Patient Lives Alone: No - Female History Hx Last Menstrual Period: 05/25/2020 Hx Now: No - Nursing Vital Signs Nursing Vital Signs: Initial Vital Signs Temperature 98.5 F 06/22/20 18:09 Pulse Rate 99 H 06/22/20 18:09 Respiratory Rate 20 06/22/20 18:09 Blood Pressure 134/80 06/22/20 18:09 O2 Sat by Pulse Oximetry 100 06/22/20 18:09 Pain Scale Pain Intensity 0 - Physical Exam General Appearance: no apparent distress, alert Eye Exam: PERRL/EOMI, eyes nml inspection Ears, Nose, Throat Exam: normal ENT inspection, pharynx normal Neck Exam: normal inspection, supple, full range of motion Respiratory Exam: normal breath sounds, lungs clear Cardiovascular Exam: regular rate/rhythm, normal heart sounds Gastrointestinal/Abdomen Exam: soft, normal bowel sounds, tenderness (Minimal suprapubic. No tenderness or guarding in the right or left lower quadrants. Bilateral negative CVA tenderness.) Back Exam: normal inspection, No CVA tenderness Extremity Exam: normal inspection, normal range of motion Neurologic Exam: alert, 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, cooperative Skin Exam: normal color SpO2 Interpretation: normal SpO2: 100 O2 Delivery: Room Air - Course Nursing assessment & vital signs reviewed: Yes Ordered Tests: Medication Summary Discontinued Medications Generic Name Dose Route Start Last Admin Trade Name Greg PRN Reason Stop Dose Admin Hydrocodone Bitart/Acetaminophen 1 tab 06/22/20 18:29 06/22/20 18:34 Reyno 10/325 Mg Tablet PO 06/22/20 18:30 1 tab STAT ONE Administration Hydrocodone Bitart/Acetaminophen Confirm 06/22/20 18:32 Reyno 10/325 Mg Tablet Administered 06/22/20 18:33 Dose 1 tab .ROUTE .STK-MED ONE Morphine Sulfate 4 mg 06/22/20 19:06 06/22/20 19:14 Morphine Sulfate 4 Mg Inj IM 06/22/20 19:07 4 mg STAT ONE Administration Morphine Sulfate Confirm 06/22/20 19:13 Morphine Sulfate 4 Mg Inj Administered 06/22/20 19:14 Dose 4 mg .ROUTE .STK-MED ONE Ondansetron HCl 4 mg 06/22/20 18:46 06/22/20 18:50 Zofran Odt 4 Mg PO 06/22/20 18:47 4 mg STAT ONE Administration Ondansetron HCl Confirm 06/22/20 18:49 Zofran Odt 4 Mg Administered 06/22/20 18:50 Dose 4 mg .ROUTE .STK-MED ONE Trimethoprim/Sulfamethoxazole 1 tab 06/22/20 18:28 06/22/20 18:34 Bactrim Ds Tablet PO 06/22/20 18:29 1 tab STAT STA Administration Trimethoprim/Sulfamethoxazole Confirm 06/22/20 18:32 Bactrim Ds Tablet Administered 06/22/20 18:33 Dose 1 tab PO .STK-MED ONE - Progress Progress: re-examined Air Movement: good Progress Note: 29 years old is evaluated for low back pain/UTI. She is started on Macrobid last night. She is noticed some hematuria which prompted her to come to ER. On evaluation she does not have any right or left lower quadrant tenderness, minimal tenderness in suprapubic area. I have reviewed the results of her urinalysis from last night and will change her to Bactrim in spite of Macrobid. Patient is asking for pain shot, given oral Reyno. She started sulfa gagging and is given Zofran. Abdominal exam is nonsurgical. Patient is afebrile. No CVA tenderness. Patient's behavior is concerning for drug-seeking behavior. She is advised to take Reyno which she has at home along with Bactrim and outpatient primary care follow-up. She has no signs of toxicity and at this point do not think she needs any work-up and is stable for discharge. Signs symptoms of worsening like developing fever, intractable vomiting, worsening abdominal pain needing return to ER which he seems understanding. It was a difficult encounter. 06/22/20 18:53 06/22/20 19:41 patient later started crying, requesting for pain medication for her back pain. She has no abdominal pain. Negative neuro exam in lower extremities. I have offered her morphine or Toradol although patient was allergic to both but she chose to take morphine which was given and she tolerated very well. I do not think patient has a true allergy to morphine. It did help with her pain. Patient is discharged in a stable condition. 06/22/20 patient is observed for more than 1 hour and a half after morphine as patient did not have a ride to go back home and she remained stable. Blood Culture(s) Obtained: No Antibiotics given: Yes Counseled pt/family regarding: diagnosis, need for follow-up - Departure Departure Disposition: Home Clinical Impression: UTI (urinary tract infection) Qualifiers: Urinary tract infection type: acute cystitis Hematuria presence: with hematuria Qualified Code(s): N30.01 - Acute cystitis with hematuria Condition: Stable Critical Care Time: No Referrals: LUZ ELENA ZAMARRIPA MD [Primary Care Provider] - Follow Up with PCP/3 days Instructions: Urinary Tract Infection, Adult (DC) Additional Instructions: TAKE TYLENOL/IBUPROFEN NEEDED. FOLLOW UP WITH PCP FOR RE-EVALUATION IN 1-2 DAYS. RETURN TO ER FOR ANY WORSENING PAIN OR IF DEVELOP FEVER / INTRACRTABLE VOMITING ETC.
[2020-06-22] MEDS ORDERED: ZOFRAN ODT 4 MG PO ONE (18:46)
[2020-06-22] MEDS ORDERED: ZOFRAN ODT 4 MG ONE (18:49)
[2020-06-22] MEDS ORDERED: MORPHINE SULFATE 4 MG INJ IM ONE (19:06)
[2020-06-22] MEDS ORDERED: MORPHINE SULFATE 4 MG INJ ONE (19:13)
[2020-06-22 20:42] VITALS: BP 111/71; PULSE 95
[2020-06-22 22:59] VITALS: O2SAT 100
== END 2020-06-22 20:43 | disposition home or self-care (01) ==
LOC: ED 17:59
DX: N30.01 Acute cystitis with hematuria (principal)
CPT/HCPCS: 96372; 99284; J2270; Q0162; A9270-GY